=== PATIENT | male | born 1965 | race Caucasian/White ===

== ENCOUNTER 2016-03-14 05:35 | Outpatient (CLI) | payer OTHER ==
[~2016-03-14] VITALS: Ht 190.5 cm; Wt 128.4 kg
[~2016-03-14 05:35] MED LIST: ACHD5005 PO; CPR500T PO; ONDAN4ODT PO
[2016-03-14] MEDS ORDERED: RANI-515 PO (10:16)
[2016-03-14] MEDS ORDERED: ALLO100T PO (10:16)
[2016-03-14] MEDS ORDERED: INDO50CA PO (10:16)
[2016-03-14] MEDS ORDERED: TRIA1TAB3 PO (10:16)
[2016-04-15] MEDS ORDERED: NITR-68 PO (09:39)
[2016-05-07] MEDS ORDERED: HYDR-3875 PO (09:43)
[2016-05-07] MEDS ORDERED: CIPR-225 PO (09:43)
[2016-05-07] MEDS ORDERED: TAMS0.4C98 PO (09:43)
== END 2016-03-14 10:26 ==
LOC: PREOP 05:35
PROVIDERS: ATTEND Urology
DX: Z01.818 Encounter for other preprocedural examination (principal); N20.0 Calculus of kidney

== ENCOUNTER 2016-03-18 06:35 | Day surgery (SDC) | payer OTHER ==
[~2016-03-18] VITALS: Ht 190.5 cm; Wt 128.4 kg
[~2016-03-18 06:35] MED LIST changes: +ALLO100T PO; +INDO50CA PO; +RANI-515 PO; +TRIA1TAB3 PO
[2016-03-18] MEDS ORDERED: cefTRIAXone 1 GM/NS 50 ML IVPB IV ONE ×2 (06:45)
[2016-03-18] MEDS ORDERED: CATHETER FLUSH 10 ML SYR IV PRN (06:45)
[2016-03-18] MEDS ORDERED: LIDOCAINE PF 2% 10 ML (XYLOCAINE) AMP ONE (06:50)
[2016-03-18] MEDS ORDERED: ROCURONIUM 50 MG/5 ML (ZEMURON) VIAL IV ONE (06:50)
[2016-03-18] MEDS ORDERED: fentaNYL INJECTION 100 MCG/2 ML AMP ONE (06:50)
[2016-03-18] MEDS ORDERED: proPOfol 200 MG/20 ML (DIPRIVAN) VIAL IV ONE (06:50)
[2016-03-18] MEDS ORDERED: ONDANSETRON 4 MG/2 ML (SDV) Z0FRAN ONE (06:50)
[2016-03-18] MEDS ORDERED: LACTATED RINGERS 1,000 ML IV ONE ×3 (06:50→10:16)
[2016-03-18] MEDS ORDERED: LIDOCAINE JELLY 2% (XYLOCAINE) 5 ML TUBE ONE (06:50)
[2016-03-18] MEDS ORDERED: MIDAZOLAM 2 MG/2 ML (VERSED) VIAL ONE (06:50)
--- NOTE | 2016-03-18 07:12 | Progress Note-Pre Operative ---
Pre-Operative Progress Note H&P Reviewed The H&P was reviewed, patient examined and no changes noted. Date H&P Reviewed: Mar 18, 2016 Time H&P Reviewed: 07:12 Pre-Operative Diagnosis: Bilateral renal stones ROME SORENSEN MD Mar 18, 2016 7:12 am
--- NOTE | 2016-03-18 07:13 | Progress Note-Post Operative ---
Post-Operative Progess Note Pre-Operative Diagnosis Bilateral renal stones Post-Operative Diagnosis Same Post-Op Procedure Note Date of Procedure: Mar 18, 2016 Name of Procedure: cysto, Rt renal stone manipulation and Rt JJ stent, Rt ESWL Anesthesia Type General FRANCHESCA,ROME Hubbard MD Mar 18, 2016 7:13 am
[2016-03-18] MEDS ORDERED: FAMOTIDINE 20MG/2ML IV (PEPCID) IV ONE (07:15)
--- NOTE | 2016-03-18 07:15 | Discharge Inst-Urology ---
Discharge Inst-Urology Discharge Medications New, Converted, or Re-newed RX: RX on Chart Patient Instructions/Follow Up Plan Please make appointment to been seen Friday 03/31, KUB prior to it KUB on way home Post ESWL instructions Increase oral fluids for 48 hours and then as needed. Diet and Activity as tolerated. If questions or concerns contact your physician Or seek help at emergency department. ROME SORENSEN MD Mar 18, 2016 7:15 am
[2016-03-18 07:25] VITALS: BP 139/107
[2016-03-18] MEDS: LACTATED RINGERS 1,000 ML IV PRN ×3 (07:40→10:24)
[2016-03-18] MEDS ORDERED: KETOROLAC 30 MG/ML VIAL ONE (08:18)
[2016-03-18] MEDS ORDERED: FUROSEMIDE 40 MG/4 ML INJ (LASIX) ONE (08:18)
[2016-03-18] MEDS ORDERED: SEVOFLURANE (ULTANE) 15 ML INHAL SOLN ONE ×4 (08:18→08:47)
--- NOTE | 2016-03-18 08:56 | Diagnostic Imaging Report ---
KUB. INDICATION: Lithotripsy. FINDINGS: There are multiple calcifications projecting over the right kidney. The largest is oval in shape measuring 2.5 cm in size and projects over the area of the right renal pelvis. There are other calcifications suggestive of upper pole and lower pole right kidney stones up to 8 mm in size. Calcification in the left flank up to 6 mm is probably a mid left kidney stone. Multiple calcifications in the pelvis are likely phleboliths. IMPRESSION: Multiple bilateral kidney stones. The largest is 2.5 cm on the right side and is probably within the renal pelvis. Dictated by: Dictated on workstation # [id number]
[2016-03-18] MEDS ORDERED: LABETALOL HCL 20 MG/4 ML VIAL ONE (08:58)
[2016-03-18] MEDS: LABETALOL HCL 20 MG/4 ML VIAL IV PRN ×4 (09:07→09:41)
[2016-03-18] MEDS ORDERED: ONDANSETRON 4 MG/2 ML (SDV) Z0FRAN IVP PRN (09:15)
[2016-03-18] MEDS ORDERED: MEPERIDINE (DEMEROL) INJ 50 MG/ML IVP PRN (09:15)
[2016-03-18] MEDS ORDERED: morphine INJ 10 MG/ML 1ML (SYR OR VIAL) IVP PRN (09:15)
[2016-03-18] MEDS ORDERED: hydrALAZINE (APESOLINE) 20 MG/ML VIAL ONE (10:02)
[2016-03-18] MEDS ORDERED: morphine INJ 10 MG/ML 1ML (SYR OR VIAL) ONE (10:06)
--- NOTE | 2016-03-18 10:17 | OPERATIVE REPORT ---
PROCEDURE PHYSICIAN: ROME SORENSEN DATE OF PROCEDURE: 03/18/2016 PREOPERATIVE DIAGNOSIS: Bilateral renal stone. POSTOPERATIVE DIAGNOSIS: Bilateral renal stone. OPERATION PERFORMED: 1. Cystoscopy. 2. Right renal stone manipulation. 3. Insertion of right double-J stent followed by right ESWL. SURGEON: Edward. ANESTHESIA: General. COMPLICATIONS: None. PROCEDURE: Under satisfactory general anesthesia, the patient in lithotomy position on the cysto table, the genitalia were prepped and draped in the usual sterile fashion. A 21-Martiniquais cystoscope was introduced under vision. Anterior urethra was normal. The prostate was not really obstructing. The bladder neck was opened. The bladder revealed mild trabeculation and was essentially empty. The right ureteral orifice was visualized and 6-Martiniquais 28 cm double J stent was passed and guided fluoroscopically all the way up to the right renal pelvis bypassing the large stone. The guidewire was removed and the stent was seen J-ing nicely proximally, fluoroscopically and distally endoscopically. The bladder was evacuated and the cystoscope was removed, then we moved the patient to the ESWL table supine. The large right renal pelvic stone was localized. Shocks were delivered KV of 5 causing some fragmentation of the stone. The patient received 30 mg of Toradol and 40 mg of Lasix at the end of the procedure. He tolerated the procedure and anesthesia well and was sent to recovery room in stable condition. PLAN: We will see the effect of this blasting. If it is does not produce much result, we will talk to him about sending him to for a percutaneous nephrolithotomy. Job ID: [id number] Dictated Date: 03/18/2016 08:47:46 Manager Case Date: 03/18/2016 10:11:02 / tani
[2016-03-18] MEDS ORDERED: hydrALAZINE (APESOLINE) 20 MG/ML VIAL IV ONE (10:30)
[2016-03-18 10:35] VITALS: BP 139/105
[2016-03-18] MEDS ORDERED: PHENAZOPYRIDINE 100 MG (PYRIDIUM) TABLET PO ONE (11:00)
[2016-03-18] MEDS ORDERED: HYDROcodone/APAP 7.5 MG/325 MG (LORTAB, LORCET PLUS) TABLET PO ONE (11:00)
[2016-03-18 11:05] VITALS: BP 147/101
[2016-03-18] MEDS ORDERED: CIPR-226 PO (11:08)
[2016-03-18] MEDS ORDERED: HYDR-3875 PO (11:08)
[2016-03-18] MEDS ORDERED: PHEN-640 PO (11:08)
[2016-03-18] MEDS ORDERED: TAMS0.4C98 PO (11:08)
[2016-03-18] MEDS ORDERED: ONDANSETRON 4 MG/2 ML (SDV) Z0FRAN IVP ONE (11:23)
[2016-03-18 11:35] VITALS: BP 132/97
[2016-03-18 14:00] VITALS: BP 132/97
--- NOTE | 2016-03-18 14:06 | Diagnostic Imaging Report ---
KUB. INDICATION: Right kidney stone. FINDINGS: There is introduction of a right ureteric stent. There is interval fragmentation of large right renal pelvic stone into fragments the largest measuring 1.9 cm. Multiple other right kidney stones are seen. There is a 6 mm left kidney stone. Calcifications in the pelvis are compatible with phleboliths seen. IMPRESSION: Multiple right kidney and right renal pelvic stones up to 1.9 cm in size. Right ureteric stent appears in good position. Dictated by: Dictated on workstation # [id number]
[2016-03-24 08:07] LABS: TESTOSTERONE FREE 60.7 pg/mL (47.0-244.0)
[2016-04-15] MEDS ORDERED: NITR-68 PO (09:39)
[2016-05-07] MEDS ORDERED: CIPR-225 PO (09:43)
[2016-05-07] MEDS ORDERED: HYDR-3875 PO (09:43)
[2016-05-07] MEDS ORDERED: TAMS0.4C98 PO (09:43)
== END 2016-03-18 14:00 | disposition home or self-care (01) ==
LOC: SDC 06:35
PROVIDERS: ATTEND Urology
DX: N20.0 Calculus of kidney (principal); I10 Essential (primary) hypertension; Z11.2 Encounter for screening for other bacterial diseases
CPT/HCPCS: 36415; 74000; 84402; 84403; 87081

== ENCOUNTER → 2016-03-31 | Outpatient (CLI) | payer OTHER ==
[~2016-03-31] MED LIST changes: +CIPR-225 PO; +CIPR-226 PO; +HYDR-3875 PO; +NITR-65 PO; +NITR-68 PO; +PHEN-640 PO; +TAMS0.4C98 PO
--- OUTSIDE RECORDS SUMMARY | 2016-03-31 13:51 | XMS REPORT | Continuity of Care Document ---
Author Author [facility] Organization [facility] Address Unknown Phone Unavailable Care Team Providers Care Instrument/Control Technician Name Role Phone [facility] OF PCP Insurance Providers Payer Name Policy Number Subscriber Name Relationship [employer]IG[employer] [id number] Vishnu Loco 18 Self / Same As Patient Advance Directives Directive Response Recorded Date/Time Advance Directives No 03/18/16 7:25am Resuscitation Status Full Code 03/18/16 7:25am Problems Active Problems Medical Problem Onset Date Status Kidney stone Unknown Acute Urinary tract infectious disease Unknown Acute Medications Current Home Medications Medication Dose Units Route Directions Days/Qty Instructions Start Date Triamterene/Hydrochlorothiazid 1 Each 1 Each Oral Daily 03/14/16 Indomethacin 50 Mg 50 Mg Oral Twice A Day as needed for Gout Pain Allopurinol 100 Mg 100 Mg Oral Daily as needed for Gout Pain Ranitidine Hcl (Ranitidine) 150 Mg 150 Mg Oral Daily as needed for Heartburn 03/14/16 Ciprofloxacin Hcl 250 Mg 250 Mg Oral Twice A Day 14 03/18/16 Tamsulosin Hcl 0.4 Mg 0.4 Mg Oral Daily 30 03/18/16 Hydrocodone/Acetaminophen 1 Each 1-2 Each Oral Every 4HRS for Pain 30 03/18/16 Phenazopyridine Hcl 200 Mg 1 Tab Oral Three Times A Day for Spasms 15 03/18/16 Past Home Medications Medication Directions Ordered Status Ondansetron Hcl 4 Mg Tab, 4 Mg Oral Every 4HRS 01/14/13 Discontinued Ciprofloxacin 500 Mg Tablet, 1 Tab Oral Twice A Day 01/14/13 Discontinued Acetaminophen/Hydrocodone Bitart 1 Each Tablet, 1-2 Each Oral Every 6 Hours as needed for Pain 01/14/13 Discontinued Social History Social History Problem Response Recorded Date/Time Alcohol Use Occasionally Uses 01/14/2013 2:37am Recreational Drug Use No 01/14/2013 2:37am Recent Foreign Travel No 03/18/2016 7:25am Recent Infectious Disease Exposure No 03/18/2016 7:25am Sexually Transmitted Disease No 03/18/2016 7:25am Smoking Status Former Smoker 03/18/2016 7:25am Recent Hopitalizations No 03/18/2016 7:25am Sexually Transmitted Disease No 03/18/2016 7:25am Query Response Start Date Stop Date Smoking Status Former Smoker Hospital Discharge Instructions Patient Instructions Physician Instructions New, Converted, or Re-newed RX: RX on Chart Plan Please make appointment to been seen Friday 03/31, KUB prior to it KUB on way home Post ESWL instructions Increase oral fluids for 48 hours and then as needed. Diet and Activity as tolerated. If questions or concerns contact your physician Or seek help at emergency department. Plan of Care Discharge Date 03/18/16 2:00pm Instructions/Education Provided ANESTHESIA INSTRUCTIONS POSTOP DR. SORENSEN-ESWL Prescriptions See Medication Section Functional Status No functional status results. Allergies, Adverse Reactions, Alerts Allergen Type Severity Reaction Status Last Updated mushroom Allergy Unknown Active 03/14/16 Immunizations No immunization records. Vital Signs Acute Vital Signs Vital Response Date/Time Temperature (Fahrenheit) 98.5 degrees F (97.6 - 99.5) 03/18/2016 2:00pm Temperature (Calculated Celsius) 36.72341 degrees C (36.4 - 37.5) 03/18/2016 11:35am Temperature Source Tympanic 03/18/2016 2:00pm Pulse Rate (adult) 82 bpm (60 - 90) 03/18/2016 2:00pm Respiratory Rate 16 bpm (12 - 24) 03/18/2016 2:00pm O2 Sat by Pulse Oximetry 95 % (88 - 100) 03/18/2016 2:00pm Blood Pressure 132/97 mm Hg 03/18/2016 2:00pm Blood Pressure Mean 118 mm Hg 03/18/2016 7:25am Pain Numeric Pain Scale 3 03/18/2016 2:00pm Pain Intensity 4 03/18/2016 11:35am Height (Feet) 6 feet 03/18/2016 7:25am Height (Inches) 3.00 inches 03/18/2016 7:25am Height (Calculated Centimeters) 190.312674 cm 03/18/2016 7:25am Weight (Pounds) 283 pounds 03/18/2016 7:25am Weight (Ounces) 0.0 oz 03/18/2016 7:25am Weight (Calculated Grams) 825502.64 gm 03/18/2016 7:25am Weight (Calculated Kilograms) 128.168290 kilograms 03/18/2016 7:25am Calculated BMI 35.4 03/18/2016 7:25am Results No known relevant diagnostic tests, laboratory data and/or discharge summary. Procedures Procedure Status Date Provider(s) Extracorporeal shockwave lithotripsy (ESWL) of right kidney Completed ROME SORENSEN MD Encounters Encounter Location Arrival/Admit Date Discharge/Depart Date Attending Provider Departed Surgical Day Care [facility] 03/18/16 6:35am 2:00pm ROME SORENSEN MD Departed Clinic [facility] 03/14/16 5:35am 03/14/16 10: 26am ROME SORENSEN MD
--- NOTE | 2016-03-31 14:31 | Diagnostic Imaging Report ---
EXAMINATION: KUB. INDICATION: Right renal stone. COMPARISON: 03/18/2016. FINDINGS: There is a 1.9 cm stone in the right renal pelvis along the proximal loop of the right ureteric stent. There are other stones in the mid and lower pole of the right kidney up to a stone fragment measuring 1.5 cm. There are also tiny stone fragments along the distal right ureter adjacent to the stent. There is a calcification projecting in the upper left flank measuring 5 mm which could represent a left kidney stone. Multiple pelvic phleboliths are demonstrated. IMPRESSION: There are multiple right kidney and right renal pelvic stones measuring up to 1.9 cm in size. Tiny stone fragments are also noted along the distal aspect of the right ureteric stent. Dictated by: Dictated on workstation # [id number]
== END ==
LOC: RAD 13:46
PROVIDERS: ATTEND Urology
DX: N20.0 Calculus of kidney (principal); Z98.890 Other specified postprocedural states
CPT/HCPCS: 74000

== ENCOUNTER 2016-04-01 14:25 | Outpatient (CLI) | payer OTHER ==
[~2016-04-01] VITALS: Ht 190.5 cm; Wt 128.4 kg
[~2016-04-01 14:25] MED LIST changes: -CIPR-225 PO; -NITR-65 PO; -NITR-68 PO
--- OUTSIDE RECORDS SUMMARY | 2016-04-01 14:29 | XMS REPORT | Continuity of Care Document ---
Author Author [facility] Organization [facility] Address Unknown Phone Unavailable Care Team Providers Care Annual Giving Officer Name Role Phone [facility] OF PCP Insurance Providers Payer Name Policy Number Subscriber Name Relationship [employer] [id number] Vishnu Loco 18 Self / Same As [...] - 99.5) 03/18/2016 2:00pm Temperature (Calculated Celsius) 36.20684 degrees C (36.4 - 37.5) 03/18/2016 11:35am [...] 3.00 inches 03/18/2016 7:25am Height (Calculated Centimeters) 190.660256 cm 03/18/2016 7:25am Weight (Pounds) 283 pounds 03/18/2016 7:25am Weight (Ounces) 0.0 oz 03/18/2016 7:25am Weight (Calculated Grams) 056619.64 gm 03/18/2016 7:25am Weight (Calculated Kilograms) 128.221358 kilograms 03/18/2016 7:25am Calculated BMI 35.4 03/18/2016 7:25am Results No known relevant diagnostic tests, laboratory data and/or discharge summary. Procedures Procedure Status Date Provider(s) Extracorporeal shockwave lithotripsy (ESWL) of right kidney Completed ROME SORENSEN MD Encounters Encounter Location Arrival/Admit Date Discharge/Depart Date Attending Provider Departed Surgical Day Care [facility] 03/18/16 6:35am 2:00pm ROME SORENSEN MD Departed Clinic [facility] 03/14/16 5:35am 03/14/16 10: 26am ROME SORENSEN MD
[2016-04-02] MEDS ORDERED: NITR-65 PO (12:07)
[2016-04-15] MEDS ORDERED: NITR-68 PO (09:39)
[2016-05-07] MEDS ORDERED: TAMS0.4C98 PO (09:43)
[2016-05-07] MEDS ORDERED: HYDR-3875 PO (09:43)
[2016-05-07] MEDS ORDERED: CIPR-225 PO (09:43)
== END 2016-04-01 14:32 ==
LOC: PREOP 14:25
PROVIDERS: ATTEND Urology
DX: Z01.818 Encounter for other preprocedural examination (principal); N20.0 Calculus of kidney

== ENCOUNTER 2016-04-02 06:52 | Day surgery (SDC) | payer OTHER ==
[~2016-04-02] VITALS: Ht 190.5 cm; Wt 128.4 kg
--- OUTSIDE RECORDS SUMMARY | 2016-04-02 06:56 | XMS REPORT | Continuity of Care Document ---
Author Author [facility] Organization [facility] Address Unknown Phone Unavailable Care Team Providers Care Faucets Assembler Name Role Phone [facility] OF PCP Insurance Providers Payer Name Policy Number Subscriber Name Relationship [employer] [id number] Vishnu Loco 18 Self / Same As [...] - 99.5) 03/18/2016 2:00pm Temperature (Calculated Celsius) 36.53133 degrees C (36.4 - 37.5) 03/18/2016 11:35am [...] 3.00 inches 03/18/2016 7:25am Height (Calculated Centimeters) 190.394264 cm 03/18/2016 7:25am Weight (Pounds) 283 pounds 03/18/2016 7:25am Weight (Ounces) 0.0 oz 03/18/2016 7:25am Weight (Calculated Grams) 508867.64 gm 03/18/2016 7:25am Weight (Calculated Kilograms) 128.066149 kilograms 03/18/2016 7:25am Calculated BMI 35.4 03/18/2016 7:25am Results No known relevant diagnostic tests, laboratory data and/or discharge summary. Procedures Procedure Status Date Provider(s) Extracorporeal shockwave lithotripsy (ESWL) of right kidney Completed ROME SORENSEN MD Encounters Encounter Location Arrival/Admit Date Discharge/Depart Date Attending Provider Departed Surgical Day Care [facility] 03/18/16 6:35am 2:00pm ROME SORENSEN MD Departed Clinic [facility] 03/14/16 5:35am 03/14/16 10: 26am ROME SORENSEN MD
--- OUTSIDE RECORDS SUMMARY | 2016-04-02 06:57 | XMS REPORT | Continuity of Care Document ---
Author Author [facility] Organization [facility] Address Unknown Phone Unavailable Care Team Providers Care Geography Instructor Name Role Phone [facility] OF PCP Insurance Providers Payer Name Policy Number Subscriber Name Relationship [employer]IGNA [id number] Vishnu Loco 18 Self / Same As [...] - 99.5) 03/18/2016 2:00pm Temperature (Calculated Celsius) 36.39970 degrees C (36.4 - 37.5) 03/18/2016 11:35am [...] 3.00 inches 03/18/2016 7:25am Height (Calculated Centimeters) 190.952181 cm 03/18/2016 7:25am Weight (Pounds) 283 pounds 03/18/2016 7:25am Weight (Ounces) 0.0 oz 03/18/2016 7:25am Weight (Calculated Grams) 338495.64 gm 03/18/2016 7:25am Weight (Calculated Kilograms) 128.350426 kilograms 03/18/2016 7:25am Calculated BMI 35.4 03/18/2016 7:25am Results No known relevant diagnostic tests, laboratory data and/or discharge summary. Procedures Procedure Status Date Provider(s) Extracorporeal shockwave lithotripsy (ESWL) of right kidney Completed ROME SORENSEN MD Encounters Encounter Location Arrival/Admit Date Discharge/Depart Date Attending Provider Departed Surgical Day Care [facility] 03/18/16 6:35am 2:00pm ROME SORENSEN MD Departed Clinic [facility] 03/14/16 5:35am 03/14/16 10: 26am ROME SORENSEN MD
[2016-04-02 07:00] VITALS: BP 150/90
--- NOTE | 2016-04-02 07:06 | Progress Note-Pre Operative ---
Pre-Operative Progress Note H&P Reviewed The H&P was reviewed, patient examined and no changes noted. Date H&P Reviewed: Apr 02, 2016 Time H&P Reviewed: 07:06 Pre-Operative Diagnosis: bilateral renal stones ROME SORENSEN MD Apr 02, 2016 7:06 am
[2016-04-02] MEDS ORDERED: cefTRIAXone 1 GM/NS 50 ML IVPB IV ONE ×2 (07:45)
[2016-04-02] MEDS ORDERED: NORMAL SALINE (BAXTER MINI) 50 ML IV ONE (07:55)
--- NOTE | 2016-04-02 08:08 | Diagnostic Imaging Report ---
EXAMINATION: KUB. INDICATION: Pre lithotripsy. COMPARISON: 03/31/16 There are multiple stones in the right kidney including a 1.9 CM stone in the right renal pelvis near the proximal loop of the right ureteric stent. Tiny stone fragments are again seen at the distal the right ureter along the stent. No definite left ureteric stones. Multiple phleboliths are seen in the pelvis. In the left flank there is a 5 mm calcification which could be a left kidney stone. IMPRESSION: Multiple right kidney stones and stone fragments along the distal right ureter. Dictated by: Dictated on workstation # [id number]
[2016-04-02] MEDS: LACTATED RINGERS 1,000 ML IV PRN ×2 (08:09→09:44)
[2016-04-02] MEDS ORDERED: fentaNYL INJECTION 100 MCG/2 ML AMP ONE (09:13)
[2016-04-02] MEDS ORDERED: MIDAZOLAM 2 MG/2 ML (VERSED) VIAL ONE (09:13)
[2016-04-02] MEDS ORDERED: proPOfol 200 MG/20 ML (DIPRIVAN) VIAL IV ONE (09:27)
[2016-04-02] MEDS ORDERED: LACTATED RINGERS 1,000 ML IV ONE ×2 (09:27→09:49)
[2016-04-02] MEDS ORDERED: ONDANSETRON 4 MG/2 ML (SDV) Z0FRAN ONE (09:27)
[2016-04-02] MEDS ORDERED: FUROSEMIDE 40 MG/4 ML INJ (LASIX) ONE (09:27)
[2016-04-02] MEDS ORDERED: SEVOFLURANE (ULTANE) 15 ML INHAL SOLN ONE ×2 (09:27→09:49)
[2016-04-02] MEDS ORDERED: KETOROLAC 30 MG/ML VIAL ONE (09:27)
[2016-04-02] MEDS ORDERED: DEXAMETHASONE PF 10 MG/ML (DECADRON) VIAL ONE (09:27)
--- NOTE | 2016-04-02 09:36 | Progress Note-Post Operative ---
Post-Operative Progess Note Pre-Operative Diagnosis bilateral renal stones Post-Operative Diagnosis SAME Post-Op Procedure Note Date of Procedure: Apr 02, 2016 Name of Procedure: RT ESWL Anesthesia Type GENERAL ROME SORENSEN MD Apr 02, 2016 9:36 am
--- NOTE | 2016-04-02 09:40 | Discharge Inst-Urology ---
Discharge Inst-Urology Discharge Medications New, Converted, or Re-newed RX: RX on Chart Patient Instructions/Follow Up Plan Please make appointment to been seen in office Friday 04/14, KUB prior to it KUB on way home Post ESWL instructions Increase oral fluids for 48 hours and then as needed. Diet and Activity as tolerated. If questions or concerns contact your physician Or seek help at emergency department. ROME SORENSEN MD Apr 02, 2016 9:40 am
[2016-04-02 10:55] VITALS: BP 132/95
[2016-04-02 11:25] VITALS: BP 134/89
[2016-04-02 11:55] VITALS: BP 126/82
[2016-04-02] MEDS ORDERED: NITR-65 PO (12:07)
[2016-04-02 13:11] VITALS: BP 126/82
--- NOTE | 2016-04-02 14:15 | Diagnostic Imaging Report ---
CLINICAL INDICATION: Postop right ESWL. EXAM: KUB x-ray. COMPARISON: KUB x-ray dated 04/02/2016 at 0740 hours. FINDINGS: The right double-J ureteral stent is again seen. Again seen are multiple bulky calcifications involving the right kidney with a large calcification seen within the right renal pelvis region. There has been interval fragmentation and change in configuration of the stone within the right renal pelvis. There is a stable appearance of stones seen along the mid right ureter at the upper L4 vertebral body level. There are also again seen calcifications overlying the distal right ureter region in the region of the pelvis. There is a stable 5 mm stone overlying the left kidney. The remainder of this exam shows no significant interval change compared to the prior study of comparison. IMPRESSION: 1. There is interval slightly fragmented appearance of the stone within the right renal pelvis compared to the prior study which may be related to the patient's recent postop changes. 2. Otherwise, stable bilateral nephrolithiasis, right side more than the left. Stable calcifications overlying the mid and distal aspect of the right ureter. The right double-J ureteral stent is still in place. Dictated by: Dictated on workstation # [id number]
--- NOTE | 2016-04-03 10:57 | OPERATIVE REPORT ---
PROCEDURE PHYSICIAN: ROME SORENSEN DATE OF PROCEDURE: 04/02/2016 PREOPERATIVE DIAGNOSIS: Bilateral renal stones. POSTOPERATIVE DIAGNOSIS: Bilateral renal stones. OPERATION: Right ESWL. SURGEON: Edward ANESTHESIA: General. COMPLICATIONS: None. PROCEDURE: Under satisfactory general anesthesia, the patient supine position on the ESWL table, the right renal pelvic stone remnant from the last time was localized. Shocks were delivered at KV of 5. A total of 2500 shocks were delivered and the stone was seen nicely layering and fainter which meant to us good fragmentation. The patient received 40 mg of Lasix and 30 mg of Toradol IV at the end of the procedure. He tolerated the procedure and anesthesia well and was sent to recovery room in stable condition. Job ID: [id number] Dictated Date: 04/02/2016 09:49:12 Technical Support Director Date: 04/03/2016 10:53:45 / tani
[2016-04-15] MEDS ORDERED: NITR-68 PO (09:39)
[2016-05-07] MEDS ORDERED: HYDR-3875 PO (09:43)
[2016-05-07] MEDS ORDERED: TAMS0.4C98 PO (09:43)
[2016-05-07] MEDS ORDERED: CIPR-225 PO (09:43)
== END 2016-04-02 13:11 | disposition home or self-care (01) ==
LOC: SDC 06:52
PROVIDERS: ATTEND Urology
DX: N20.0 Calculus of kidney (principal); Z11.2 Encounter for screening for other bacterial diseases
CPT/HCPCS: 74000; 87081

== ENCOUNTER → 2016-04-14 | Outpatient (CLI) | payer OTHER ==
[~2016-04-14] MED LIST changes: +CIPR-225 PO; +NITR-65 PO; +NITR-68 PO
--- OUTSIDE RECORDS SUMMARY | 2016-04-14 15:14 | XMS REPORT | Continuity of Care Document ---
Author Author [facility] Organization [facility] Address Unknown Phone Unavailable Care Team Providers Care Torpedo Shooter Name Role Phone LION ORTEGA DO PCP Insurance Providers Payer Name Policy Number Subscriber Name Relationship CIGNA [id number] Vishnu Loco 18 Self / Same As Patient Advance Directives Directive Response Recorded Date/Time Advance Directives No 04/02/16 7:00am Health Care Power of Marine Equipment Engineer No 04/02/16 7:00am Resuscitation Status Full Code [...] - 99.5) 04/02/2016 1:11pm Temperature (Calculated Celsius) 36.00315 degrees C (36.4 - 37.5) 04/02/2016 11:55am [...] 3.00 inches 04/02/2016 7:00am Height (Calculated Centimeters) 190.123413 cm 04/02/2016 7:00am Weight (Pounds) 283 pounds 04/02/2016 7:00am Weight (Ounces) 0.0 oz 04/02/2016 7:00am Weight (Calculated Grams) 968499.64 gm 04/02/2016 7:00am Weight (Calculated Kilograms) 128.533431 kilograms 04/02/2016 7:00am Calculated BMI 35.4 04/02/2016 [...] Attending Provider Registered Surgical Day Care [facility] 04/02/16 6:52am ROME SORENSEN MD Departed Clinic [facility] 04/01/16 2:25pm 04/01/16 2: 32pm ROME SORENSEN MD Registered Clinic [facility] 03/31/16 1:46pm ROME SORENSEN MD Departed Surgical Day Care [facility] 03/18/16 6:35am 2:00pm ROME SORENSEN MD Departed Clinic [facility] 03/14/16 5:35am 03/14/16 10: 26am ROME SORENSEN MD
--- NOTE | 2016-04-14 18:24 | Diagnostic Imaging Report ---
KUB. INDICATION: Right renal stones. COMPARISON: 04/02/16. FINDINGS: In the lower pole of the left kidney, there is suggestion of probably 3 poorly large stones in the lower pole of the right kidney. Other smaller stones in the mid and upper right kidney and a 6 mm stone in the left kidney is seen. There are also proximal right ureteric stones up to 8 mm in size at L3 level. Right ureteric stent is in place. Multiple pelvic phleboliths also seen. IMPRESSION: Multiple bilateral kidney stones, larger on the right side. There are also proximal right ureteric stones up to 8 mm at L3 level. Dictated by: Dictated on workstation # [id number]
== END ==
LOC: RAD 15:10
PROVIDERS: ATTEND Urology
DX: N20.0 Calculus of kidney (principal); Z98.890 Other specified postprocedural states
CPT/HCPCS: 74000

== ENCOUNTER → 2016-04-14 | Outpatient (CLI) | payer OTHER ==
--- OUTSIDE RECORDS SUMMARY | 2016-04-14 05:41 | XMS REPORT | Continuity of Care Document ---
Author Author [facility] Organization [facility] Address Unknown Phone Unavailable Care Team Providers Care Color Grinder Name Role Phone LION ORTEGA DO PCP Insurance Providers Payer Name Policy Number Subscriber Name Relationship [employer]IG[employer] [id number] Vishnu Loco 18 Self / Same As Patient Advance Directives Directive Response Recorded Date/Time Advance Directives No 04/02/16 7:00am Health Care Power of Machine Made Shoe Unit Worker No 04/02/16 7:00am Resuscitation Status Full Code 04/02/16 7:00am Problems Active Problems Medical Problem Onset Date [...] Oral Daily as needed for Heartburn 03/14/16 Tamsulosin Hcl 0.4 Mg 0.4 Mg Oral Daily 30 03/18/16 Hydrocodone/Acetaminophen 1 Each 1-2 Each Oral Every 4HRS for Pain 30 03/18/16 Phenazopyridine Hcl 200 Mg 1 Tab Oral Three Times A Day for Spasms 15 03/18/16 Nitrofurantoin Monohyd/M-Cryst 100 Mg 1 Tab Oral Twice A Day 14 TAKE ONE CAPSULE TWICE A DAY. USE ALL OF THIS ANTIBIOTIC PRESCRIBED. 04/02/16 Past Home Medications Medication Directions Ordered Status Ondansetron Hcl 4 Mg Tab, 4 Mg Oral Every 4HRS 01/14/13 Discontinued Ciprofloxacin 500 Mg Tablet, 1 Tab Oral Twice A Day 01/14/13 Discontinued Acetaminophen/Hydrocodone Bitart 1 Each Tablet, 1-2 Each Oral Every 6 Hours as needed for Pain 01/14/13 Discontinued Ciprofloxacin Hcl 250 Mg Tablet, 250 Mg Oral Twice A Day 03/18/16 Discontinued Social History Social History Problem Response Recorded Date/Time Alcohol Use Occasionally Uses 01/14/2013 2:37am Recreational Drug Use No 01/14/2013 2:37am Recent Foreign Travel No 04/02/2016 7:00am Recent Infectious Disease Exposure No 04/02/2016 7:00am Sexually Transmitted Disease No 04/02/2016 7:00am HIV/AIDS No 04/02/2016 7:00am Smoking Status Former Smoker 04/02/2016 7:00am Recent Hopitalizations No 04/02/2016 7:00am Sexually Transmitted Disease No 04/02/2016 7:00am Query Response Start Date Stop Date Smoking Status Former Smoker Hospital Discharge Instructions Patient Instructions Physician Instructions New, Converted, or Re-newed RX: RX on Chart Plan Please make appointment to been seen in office Friday 04/14, KUSunita prior to it KUB on way home Post ESWL instructions Increase oral fluids for 48 hours and then as needed. Diet and Activity as tolerated. If questions or concerns contact your physician Or seek help at emergency department. Plan of Care Discharge Date 04/02/16 1:11pm Instructions/Education Provided ANESTHESIA INSTRUCTIONS POSTOP DR. SORENSEN-ESWL Prescriptions See Medication Section Functional Status No functional status results. Allergies, Adverse Reactions, Alerts Allergen Type Severity Reaction Status Last Updated mushroom Allergy Unknown Active 03/14/16 Immunizations No immunization records. Vital Signs Acute Vital Signs Vital Response Date/Time Temperature (Fahrenheit) 97.9 degrees F (97.6 - 99.5) 04/02/2016 1:11pm Temperature (Calculated Celsius) 36.59510 degrees C (36.4 - 37.5) 04/02/2016 11:55am Temperature Source Tympanic 04/02/2016 1:11pm Pulse Rate (adult) 78 bpm (60 - 90) 04/02/2016 1:11pm Respiratory Rate 16 bpm (12 - 24) 04/02/2016 1:11pm O2 Sat by Pulse Oximetry 93 % (88 - 100) 04/02/2016 1:11pm Blood Pressure 126/82 mm Hg 04/02/2016 1:11pm Blood Pressure Mean 110 mm Hg 04/02/2016 7:00am Pain Numeric Pain Scale 0-No Pain 04/02/2016 1:11pm Pain Intensity 0 04/02/2016 11:55am Height (Feet) 6 feet 04/02/2016 7:00am Height (Inches) 3.00 inches 04/02/2016 7:00am Height (Calculated Centimeters) 190.350867 cm 04/02/2016 7:00am Weight (Pounds) 283 pounds 04/02/2016 7:00am Weight (Ounces) 0.0 oz 04/02/2016 7:00am Weight (Calculated Grams) 609915.64 gm 04/02/2016 7:00am Weight (Calculated Kilograms) 128.991539 kilograms 04/02/2016 7:00am Calculated BMI 35.4 04/02/2016 7:00am Results Pending Laboratory Results Test Name Collection Date/Time Pending Microbiology Results Procedure Source Collection Date/Time Procedures Procedure Status Date Provider(s) CYSTOSCOPY AND TREATMENT Completed 03/18/16 ROME SORENSEN MD FRAGMENTING OF KIDNEY STONE Completed 03/18/16 ROME SORENSEN MD Extracorporeal shockwave lithotripsy (ESWL) of right kidney Completed ROME SORENSEN MD Encounters Encounter Location Arrival/Admit Date Discharge/Depart Date Attending Provider Registered Surgical Day Care [facility] 04/02/16 6:52am ROME SORENSEN MD Departed Clinic [facility] 04/01/16 2:25pm 04/01/16 2: 32pm ROME SORENSEN MD Registered Clinic [facility] 03/31/16 1:46pm ROME SORENSEN MD Departed Surgical Day Care [facility] 03/18/16 6:35am 2:00pm ROME SORENSEN MD Departed Clinic [facility] 03/14/16 5:35am 03/14/16 10: 26am ROME SORENSEN MD
== END ==
LOC: PREOP 05:38
PROVIDERS: ATTEND Urology
DX: Z01.818 Encounter for other preprocedural examination (principal); N20.0 Calculus of kidney

== ENCOUNTER 2016-04-15 06:09 | Day surgery (SDC) | payer OTHER ==
[~2016-04-15] VITALS: Ht 190.5 cm; Wt 128.4 kg
[~2016-04-15 06:09] MED LIST changes: -CIPR-225 PO; -NITR-68 PO
--- OUTSIDE RECORDS SUMMARY | 2016-04-15 06:13 | XMS REPORT | Continuity of Care Document ---
Author Author [facility] Organization [facility] Address Unknown Phone Unavailable Care Team Providers Care Dough Cutting Machine Operator Name Role Phone LION ORTEGA DO PCP Insurance Providers Payer Name Policy Number Subscriber Name Relationship CIGNA [id number] Vishnu Loco 18 Self / Same As Patient Advance Directives Directive Response Recorded Date/Time Advance Directives No 04/02/16 7:00am Health Care Power of Car Blocker No 04/02/16 7:00am Resuscitation Status Full Code [...] - 99.5) 04/02/2016 1:11pm Temperature (Calculated Celsius) 36.46350 degrees C (36.4 - 37.5) 04/02/2016 11:55am [...] 3.00 inches 04/02/2016 7:00am Height (Calculated Centimeters) 190.213272 cm 04/02/2016 7:00am Weight (Pounds) 283 pounds 04/02/2016 7:00am Weight (Ounces) 0.0 oz 04/02/2016 7:00am Weight (Calculated Grams) 354499.64 gm 04/02/2016 7:00am Weight (Calculated Kilograms) 128.637690 kilograms 04/02/2016 7:00am Calculated BMI 35.4 04/02/2016 7:00am Results Pending Laboratory Results Test Name Collection Date/Time Pending Microbiology Results Procedure Source Collection Date/Time Procedures Procedure Status Date Provider(s) CYSTOSCOPY AND TREATMENT Completed 03/18/16 ROME SORENSEN MD FRAGMENTING OF KIDNEY STONE Completed 03/18/16 ROEM SORENSEN MD Extracorporeal shockwave lithotripsy (ESWL) of right kidney Completed ROME SORENSEN MD Encounters Encounter Location Arrival/Admit Date Discharge/Depart Date Attending Provider Registered Surgical Day Care [facility] 04/02/16 6:52am ROME SORENSEN MD Departed Clinic [facility] 04/01/16 2:25pm 04/01/16 2: 32pm ROME SORENSEN MD Registered Clinic [facility] 03/31/16 1:46pm ROME SORENSEN MD Departed Surgical Day Care [facility] 03/18/16 6:35am 2:00pm ROME SORENSEN MD Departed Clinic [facility] 03/14/16 5:35am 03/14/16 10: 26am ROME SORENSEN MD
--- OUTSIDE RECORDS SUMMARY | 2016-04-15 06:13 | XMS REPORT | Continuity of Care Document ---
Author Author [facility] Organization [facility] Address Unknown Phone Unavailable Care Team Providers Care Narrative Writer Name Role Phone LION ORTEGA DO PCP Insurance Providers Payer Name Policy Number Subscriber Name Relationship CIGNA [id number] Vishnu Loco 18 Self / Same As Patient Advance Directives Directive Response Recorded Date/Time Advance Directives No 04/02/16 7:00am Health Care Power of Front Line Leader No 04/02/16 7:00am Resuscitation Status Full Code [...] - 99.5) 04/02/2016 1:11pm Temperature (Calculated Celsius) 36.00917 degrees C (36.4 - 37.5) 04/02/2016 11:55am [...] 3.00 inches 04/02/2016 7:00am Height (Calculated Centimeters) 190.216194 cm 04/02/2016 7:00am Weight (Pounds) 283 pounds 04/02/2016 7:00am Weight (Ounces) 0.0 oz 04/02/2016 7:00am Weight (Calculated Grams) 898119.64 gm 04/02/2016 7:00am Weight (Calculated Kilograms) 128.706533 kilograms 04/02/2016 7:00am Calculated BMI 35.4 04/02/2016 [...] Attending Provider Registered Surgical Day Care [facility] 04/02/16 6:52am ROME SORENSEN MD Departed Clinic [facility] 04/01/16 2:25pm 04/01/16 2: 32pm ROME SORENSEN MD Registered Clinic [facility] 03/31/16 1:46pm ROME SORENSEN MD Departed Surgical Day Care [facility] 03/18/16 6:35am 2:00pm ROME SORENSEN MD Departed Clinic [facility] 03/14/16 5:35am 03/14/16 10: 26am ROME SORENSEN MD
[2016-04-15] MEDS ORDERED: cefTRIAXone 1 GM (ROCEPHIN) VIAL ONE (06:32)
[2016-04-15] MEDS ORDERED: NS (IVPB) 50 ML ONE (06:33)
[2016-04-15] MEDS ORDERED: LACTATED RINGERS 1,000 ML IV PRN (06:57)
[2016-04-15 07:00] VITALS: BP 139/97
[2016-04-15] MEDS ORDERED: cefTRIAXone 1 GM/NS 50 ML IVPB IV ONE ×2 (07:00)
[2016-04-15] MEDS ORDERED: FUROSEMIDE 40 MG/4 ML INJ (LASIX) ONE (07:01)
[2016-04-15] MEDS ORDERED: KETOROLAC 30 MG/ML VIAL ONE (07:01)
[2016-04-15] MEDS ORDERED: proPOfol 200 MG/20 ML (DIPRIVAN) VIAL IV ONE (07:01)
[2016-04-15] MEDS ORDERED: ONDANSETRON 4 MG/2 ML (SDV) Z0FRAN ONE ×2 (07:01→09:14)
[2016-04-15] MEDS ORDERED: DEXAMETHASONE PF 10 MG/ML (DECADRON) VIAL ONE (07:01)
[2016-04-15] MEDS ORDERED: fentaNYL INJECTION 100 MCG/2 ML AMP ONE (07:01)
[2016-04-15] MEDS ORDERED: LIDOCAINE PF 2% 10 ML (XYLOCAINE) AMP ONE (07:01)
[2016-04-15] MEDS ORDERED: MIDAZOLAM 2 MG/2 ML (VERSED) VIAL ONE (07:02)
[2016-04-15] MEDS ORDERED: LACTATED RINGERS 1,000 ML IV ONE ×2 (07:02→08:17)
--- NOTE | 2016-04-15 07:17 | Progress Note-Pre Operative ---
Pre-Operative Progress Note H&P Reviewed The H&P was reviewed, patient examined and no changes noted. Date H&P Reviewed: Apr 15, 2016 Time H&P Reviewed: 07:17 Pre-Operative Diagnosis: RT RENAL AND URETERAL STONES ROME SORENSEN MD Apr 15, 2016 7:17 am
--- NOTE | 2016-04-15 07:23 | Diagnostic Imaging Report ---
INDICATION: Lithotripsy KUB is obtained with comparison made to study of one day earlier. Multiple calculi are again seen within the right kidney with the largest in the lower pole region reaching 1.5 cm in size. Double-J nephroureteral stent is in place on the right with several stones again seen adjacent to this stent at the L3-4 level measuring up to 0.6 cm in size. Additional calcifications in the right hemipelvis are likely due to phlebolith. 0.5 cm calculus is again noted in the upper pole region of the left kidney. IMPRESSION: Bilateral renal calculi, similar to previous study with no significant change in stones adjacent to the right nephroureteral stent at the L3-4 level. Dictated by: Dictated on workstation # [id number]
--- NOTE | 2016-04-15 07:41 | Progress Note-Post Operative ---
Post-Operative Progess Note Pre-Operative Diagnosis RT RENAL AND URETERAL STONES Post-Operative Diagnosis SAME Post-Op Procedure Note Date of Procedure: Apr 15, 2016 Name of Procedure: RT ESWL Anesthesia Type GENERAL ROME SORENSEN MD Apr 15, 2016 7:41 am
--- NOTE | 2016-04-15 07:43 | Discharge Inst-Urology ---
Discharge Inst-Urology Discharge Medications New, Converted, or Re-newed RX: RX on Chart Patient Instructions/Follow Up Plan Please make appointment to been seen Friday 05/05, KUB prior to it KUB on way home Post ESWL instructions Increase oral fluids for 48 hours and then as needed. Diet and Activity as tolerated. If questions or concerns contact your physician Or seek help at emergency department. ROEM SORENSEN MD Apr 15, 2016 7:43 am
[2016-04-15] MEDS ORDERED: ONDANSETRON 4 MG/2 ML (SDV) Z0FRAN IVP PRN (08:45)
[2016-04-15] MEDS ORDERED: morphine INJ 10 MG/ML 1ML (SYR OR VIAL) IVP PRN (08:45)
[2016-04-15] MEDS ORDERED: MEPERIDINE (DEMEROL) INJ 50 MG/ML IVP PRN (08:45)
[2016-04-15 09:30] VITALS: BP 142/97
[2016-04-15] MEDS ORDERED: NITR-68 PO ×2 (09:39)
[2016-04-15 10:00] VITALS: BP 142/97
[2016-04-15 10:30] VITALS: BP 139/97
[2016-04-15] MEDS ORDERED: HYDROcodone/APAP 7.5 MG/325 MG (LORTAB, LORCET PLUS) TABLET PO ONE (11:20)
--- NOTE | 2016-04-15 12:12 | Diagnostic Imaging Report ---
EXAMINATION: KUB. INDICATION: Post lithotripsy. FINDINGS: Again seen large stones in the lower pole of the right kidney with confluent stones or stone fragments collectively measuring up to 3.1 CM seen within the lower pole calyxes. Other smaller multiple stones in the mid right kidney are noted and a 5 mm stone in the left kidney is seen. There are prominent stones along the proximal right ureter adjacent to the stent seen when compared to 04/15/16 exam prior to lithotripsy. Phleboliths noted in the pelvis. IMPRESSION: Bilateral kidney stones most prominent in the lower pole of the right kidney. Less prominent proximal right ureter stone adjacent to the stent seen. Dictated by: Dictated on workstation # [id number]
[2016-04-15 12:50] VITALS: BP 139/97
--- NOTE | 2016-04-16 12:36 | OPERATIVE REPORT ---
PROCEDURE PHYSICIAN: ROME SORENSEN DATE OF PROCEDURE: 04/15/2016 PREOPERATIVE DIAGNOSIS: Bilateral renal stones and right proximal ureteral stone. OPERATION: Right ESWL x2. SURGEON: Edward. ANESTHESIA: General. COMPLICATIONS: None. PROCEDURE: Under satisfactory general anesthesia, the patient in supine position on the ESWL table, we first localized to put good fragment stones in the proximal right ureter and fragmented them with 2000 shocks at KV of 6. Then we moved to the main portion of the stone fragments in the kidney on the right side and we delivered 2500 shocks. The stones looked well fragmented much fainter. The patient received 40 mg of Lasix and 30 mg of Toradol IV. He tolerated the procedure and anesthesia well and was sent to recovery room in stable condition. Job ID: [id number] Dictated Date: 04/15/2016 08:27:40 Ceo And President Date: 04/16/2016 12:33:53 / tani
[2016-05-07] MEDS ORDERED: TAMS0.4C98 PO (09:43)
[2016-05-07] MEDS ORDERED: CIPR-225 PO (09:43)
[2016-05-07] MEDS ORDERED: HYDR-3875 PO (09:43)
== END 2016-04-15 12:50 | disposition home or self-care (01) ==
LOC: SDC 06:09
PROVIDERS: ATTEND Urology
DX: N20.2 Calculus of kidney with calculus of ureter (principal)
CPT/HCPCS: 74000; 87081

== ENCOUNTER → 2016-05-05 | Outpatient (CLI) | payer OTHER ==
[~2016-05-05] MED LIST changes: +CIPR-225 PO; +NITR-68 PO
--- OUTSIDE RECORDS SUMMARY | 2016-05-05 13:26 | XMS REPORT | Continuity of Care Document ---
Author Author [facility] Organization [facility] Address Unknown Phone Unavailable Care Team Providers Care Bird Trapper Name Role Phone LION ORTEGA DO PCP Insurance Providers Payer Name Policy Number Subscriber Name Relationship CIGNA [id number] Vishnu Loco 18 Self / Same As Patient Advance Directives Directive Response Recorded Date/Time Advance Directives No 04/02/16 7:00am Health Care Power of Forensics Analyst No 04/02/16 7:00am Resuscitation Status Full Code [...] 1:11pm Instructions/Education Provided ANESTHESIA INSTRUCTIONS POSTOP DR. SORENESN-ESWL Prescriptions See Medication Section Functional Status No functional status results. Allergies, Adverse Reactions, Alerts Allergen Type Severity Reaction Status Last Updated mushroom Allergy Unknown Active 03/14/16 Immunizations No immunization records. Vital Signs Acute Vital Signs Vital Response Date/Time Temperature (Fahrenheit) 97.9 degrees F (97.6 - 99.5) 04/02/2016 1:11pm Temperature (Calculated Celsius) 36.13486 degrees C (36.4 - 37.5) 04/02/2016 11:55am [...] 3.00 inches 04/02/2016 7:00am Height (Calculated Centimeters) 190.898209 cm 04/02/2016 7:00am Weight (Pounds) 283 pounds 04/02/2016 7:00am Weight (Ounces) 0.0 oz 04/02/2016 7:00am Weight (Calculated Grams) 361163.64 gm 04/02/2016 7:00am Weight (Calculated Kilograms) 128.896668 kilograms 04/02/2016 7:00am Calculated BMI 35.4 04/02/2016 [...] Attending Provider Registered Surgical Day Care [facility] 04/02/16 6:52am ROME SORENSEN MD Departed Clinic [facility] 04/01/16 2:25pm 04/01/16 2: 32pm ROME SORENSEN MD Registered Clinic [facility] 03/31/16 1:46pm ROME SORENSEN MD Departed Surgical Day Care [facility] 03/18/16 6:35am 2:00pm ROME SORENSEN MD Departed Clinic [facility] 03/14/16 5:35am 03/14/16 10: 26am ROME SORENSEN MD
--- NOTE | 2016-05-05 18:29 | Diagnostic Imaging Report ---
Abdomen supine at 1:50 p.m. INDICATION: Nephrolithiasis. FINDINGS: The prior abdomen exam of 04/15/2016 noted a ureteral stent in place on the right. In the interval since the prior study, the stent has migrated caudally and the proximal portion of stent now overlies the distal right ureter with at least half the stent coiled on itself in the bladder. Furthermore, in the interval since the previous study, numerous calcifications from the inferior pole of right kidney have migrated into the distal right ureter. There are still a few calcific densities overlying the right kidney. The 4 mm calculus overlying the left kidney seen previously is also again evident and no different. No other abnormalities noted. IMPRESSION: 1. The ureteral stent in the right has migrated into the distal right ureter. There are also numerous calculi now overlying the distal right ureter. 2. These results were discussed with Dr. Leon. Dictated by: Dictated on workstation # [id number]
== END ==
LOC: RAD 13:22
PROVIDERS: ATTEND Urology
DX: N20.1 Calculus of ureter (principal)
CPT/HCPCS: 74000

== ENCOUNTER 2016-05-06 08:30 | Outpatient (CLI) | payer OTHER ==
--- OUTSIDE RECORDS SUMMARY | 2016-04-30 05:36 | XMS REPORT | Continuity of Care Document ---
Author Author [facility] Organization [facility] Address Unknown Phone Unavailable Care Team Providers Care Incident Response Engineer Name Role Phone LION ORTEGA DO PCP Insurance Providers Payer Name Policy Number Subscriber Name Relationship CIGNA [id number] Vishnu Loco 18 Self / Same As Patient Advance Directives Directive Response Recorded Date/Time Advance Directives No 04/02/16 7:00am Health Care Power of Bridges And Buildings Supervisor No 04/02/16 7:00am Resuscitation Status Full Code [...] - 99.5) 04/02/2016 1:11pm Temperature (Calculated Celsius) 36.22186 degrees C (36.4 - 37.5) 04/02/2016 11:55am [...] 3.00 inches 04/02/2016 7:00am Height (Calculated Centimeters) 190.986879 cm 04/02/2016 7:00am Weight (Pounds) 283 pounds 04/02/2016 7:00am Weight (Ounces) 0.0 oz 04/02/2016 7:00am Weight (Calculated Grams) 594312.64 gm 04/02/2016 7:00am Weight (Calculated Kilograms) 128.942137 kilograms 04/02/2016 7:00am Calculated BMI 35.4 04/02/2016 7:00am Results Pending Laboratory Results Test Name Collection Date/Time Pending Microbiology Results Procedure Source Collection Date/Time Procedures Procedure Status Date Provider(s) CYSTOSCOPY AND TREATMENT Completed 03/18/16 ROME SORENSEN MD FRAGMENTING OF KIDNEY STONE Completed 03/18/16 ORME SORENSEN MD Extracorporeal shockwave lithotripsy (ESWL) of right kidney Completed ROME SORENSEN MD Encounters Encounter Location Arrival/Admit Date Discharge/Depart Date Attending Provider Registered Surgical Day Care [facility] 04/02/16 6:52am ROME SORENSEN MD Departed Clinic [facility] 04/01/16 2:25pm 04/01/16 2: 32pm ROME SORENSEN MD Registered Clinic [facility] 03/31/16 1:46pm ROME SORENSEN MD Departed Surgical Day Care [facility] 03/18/16 6:35am 2:00pm ROME SORENSEN MD Departed Clinic [facility] 03/14/16 5:35am 03/14/16 10: 26am ROME SORENSEN MD
--- OUTSIDE RECORDS SUMMARY | 2016-05-05 05:44 | XMS REPORT | Continuity of Care Document ---
Author Author [facility] Organization [facility] Address Unknown Phone Unavailable Care Team Providers Care Cna Pct Name Role Phone LION ORTEGA DO PCP Insurance Providers Payer Name Policy Number Subscriber Name Relationship CIGNA [id number] Vishnu Loco 18 Self / Same As Patient Advance Directives Directive Response Recorded Date/Time Advance Directives No 04/02/16 7:00am Health Care Power of Computer Systems Security Administrator No 04/02/16 7:00am Resuscitation Status Full Code [...] 1:11pm Instructions/Education Provided ANESTHESIA INSTRUCTIONS POSTOP DR. OSRENSEN-ESWL Prescriptions See Medication Section Functional Status No functional status results. Allergies, Adverse Reactions, Alerts Allergen Type Severity Reaction Status Last Updated mushroom Allergy Unknown Active 03/14/16 Immunizations No immunization records. Vital Signs Acute Vital Signs Vital Response Date/Time Temperature (Fahrenheit) 97.9 degrees F (97.6 - 99.5) 04/02/2016 1:11pm Temperature (Calculated Celsius) 36.86514 degrees C (36.4 - 37.5) 04/02/2016 11:55am [...] 3.00 inches 04/02/2016 7:00am Height (Calculated Centimeters) 190.915767 cm 04/02/2016 7:00am Weight (Pounds) 283 pounds 04/02/2016 7:00am Weight (Ounces) 0.0 oz 04/02/2016 7:00am Weight (Calculated Grams) 643234.64 gm 04/02/2016 7:00am Weight (Calculated Kilograms) 128.766592 kilograms 04/02/2016 7:00am Calculated BMI 35.4 04/02/2016 [...] Attending Provider Registered Surgical Day Care [facility] 04/02/16 6:52am ROME SORENSEN MD Departed Clinic [facility] 04/01/16 2:25pm 04/01/16 2: 32pm ROME SORENSEN MD Registered Clinic [facility] 03/31/16 1:46pm ROME SORENSEN MD Departed Surgical Day Care [facility] 03/18/16 6:35am 2:00pm ROME SORENSEN MD Departed Clinic [facility] 03/14/16 5:35am 03/14/16 10: 26am ROME SORENSEN MD
[~2016-05-06] VITALS: Ht 190.5 cm; Wt 128.4 kg
[~2016-05-06 08:30] MED LIST changes: -CIPR-225 PO
--- OUTSIDE RECORDS SUMMARY | 2016-05-06 08:47 | XMS REPORT | Continuity of Care Document ---
Author Author [facility] Organization [facility] Address Unknown Phone Unavailable Care Team Providers Care Lang Interpreter Name Role Phone LION ORTEGA DO PCP Insurance Providers Payer Name Policy Number Subscriber Name Relationship CIGNA [id number] Vishnu Loco 18 Self / Same As Patient Advance Directives Directive Response Recorded Date/Time Advance Directives No 04/02/16 7:00am Health Care Power of Foamite Mixer No 04/02/16 7:00am Resuscitation Status Full Code [...] - 99.5) 04/02/2016 1:11pm Temperature (Calculated Celsius) 36.97413 degrees C (36.4 - 37.5) 04/02/2016 11:55am [...] 3.00 inches 04/02/2016 7:00am Height (Calculated Centimeters) 190.428918 cm 04/02/2016 7:00am Weight (Pounds) 283 pounds 04/02/2016 7:00am Weight (Ounces) 0.0 oz 04/02/2016 7:00am Weight (Calculated Grams) 728449.64 gm 04/02/2016 7:00am Weight (Calculated Kilograms) 128.719913 kilograms 04/02/2016 7:00am Calculated BMI 35.4 04/02/2016 [...] Attending Provider Registered Surgical Day Care [facility] 04/02/16 6:52am ROME SORENSEN MD Departed Clinic [facility] 04/01/16 2:25pm 04/01/16 2: 32pm ROME SORENSEN MD Registered Clinic [facility] 03/31/16 1:46pm ROME SORENSEN MD Departed Surgical Day Care [facility] 03/18/16 6:35am 2:00pm ROME SORENSEN MD Departed Clinic [facility] 03/14/16 5:35am 03/14/16 10: 26am ROME SORENSEN MD
[2016-05-07] MEDS ORDERED: TAMS0.4C98 PO (09:43)
[2016-05-07] MEDS ORDERED: CIPR-225 PO (09:43)
[2016-05-07] MEDS ORDERED: HYDR-3875 PO (09:43)
== END 2016-05-06 09:01 ==
LOC: PREOP 08:30
PROVIDERS: ATTEND Urology
DX: Z01.818 Encounter for other preprocedural examination (principal); N20.2 Calculus of kidney with calculus of ureter

== ENCOUNTER 2016-05-07 06:13 | Day surgery (SDC) | payer OTHER ==
[~2016-05-07] VITALS: Ht 190.5 cm; Wt 128.4 kg
--- OUTSIDE RECORDS SUMMARY | 2016-05-07 06:15 | XMS REPORT | Continuity of Care Document ---
Author Author [facility] Organization [facility] Address Unknown Phone Unavailable Care Team Providers Care Crystal Gazer Name Role Phone LION ORTEGA DO PCP Insurance Providers Payer Name Policy Number Subscriber Name Relationship CIGNA [id number] Vishnu Loco 18 Self / Same As Patient Advance Directives Directive Response Recorded Date/Time Advance Directives No 04/02/16 7:00am Health Care Power of Loin Puller No 04/02/16 7:00am Resuscitation Status Full Code [...] - 99.5) 04/02/2016 1:11pm Temperature (Calculated Celsius) 36.02498 degrees C (36.4 - 37.5) 04/02/2016 11:55am [...] 3.00 inches 04/02/2016 7:00am Height (Calculated Centimeters) 190.601371 cm 04/02/2016 7:00am Weight (Pounds) 283 pounds 04/02/2016 7:00am Weight (Ounces) 0.0 oz 04/02/2016 7:00am Weight (Calculated Grams) 427644.64 gm 04/02/2016 7:00am Weight (Calculated Kilograms) 128.298067 kilograms 04/02/2016 7:00am Calculated BMI 35.4 04/02/2016 [...] Attending Provider Registered Surgical Day Care [facility] 04/02/16 6:52am ROME SORENSEN MD Departed Clinic [facility] 04/01/16 2:25pm 04/01/16 2: 32pm ROME SORENSEN MD Registered Clinic [facility] 03/31/16 1:46pm ROME SORENSEN MD Departed Surgical Day Care [facility] 03/18/16 6:35am 2:00pm ROME SORENSEN MD Departed Clinic [facility] 03/14/16 5:35am 03/14/16 10: 26am ROME SORENSEN MD
--- OUTSIDE RECORDS SUMMARY | 2016-05-07 06:16 | XMS REPORT | Continuity of Care Document ---
Author Author [facility] Organization [facility] Address Unknown Phone Unavailable Care Team Providers Care Inspector Subassemblies Name Role Phone LION ORTEGA DO PCP Insurance Providers Payer Name Policy Number Subscriber Name Relationship CIGNA [id number] Vishnu Loco 18 Self / Same As Patient Advance Directives Directive Response Recorded Date/Time Advance Directives No 04/02/16 7:00am Health Care Power of German Professor No 04/02/16 7:00am Resuscitation Status Full Code [...] - 99.5) 04/02/2016 1:11pm Temperature (Calculated Celsius) 36.35362 degrees C (36.4 - 37.5) 04/02/2016 11:55am [...] 3.00 inches 04/02/2016 7:00am Height (Calculated Centimeters) 190.453342 cm 04/02/2016 7:00am Weight (Pounds) 283 pounds 04/02/2016 7:00am Weight (Ounces) 0.0 oz 04/02/2016 7:00am Weight (Calculated Grams) 117621.64 gm 04/02/2016 7:00am Weight (Calculated Kilograms) 128.647943 kilograms 04/02/2016 7:00am Calculated BMI 35.4 04/02/2016 [...] Attending Provider Registered Surgical Day Care [facility] 04/02/16 6:52am ROME SORENSEN MD Departed Clinic [facility] 04/01/16 2:25pm 04/01/16 2: 32pm ROME SORENSEN MD Registered Clinic [facility] 03/31/16 1:46pm ROME SORENSEN MD Departed Surgical Day Care [facility] 03/18/16 6:35am 2:00pm ROME SORENSEN MD Departed Clinic [facility] 03/14/16 5:35am 03/14/16 10: 26am ROME SORENSEN MD
[2016-05-07] MEDS ORDERED: LACTATED RINGERS 1,000 ML IV PRN (06:37)
[2016-05-07] MEDS ORDERED: cefTRIAXone 1 GM (ROCEPHIN) VIAL ONE (06:42)
[2016-05-07] MEDS ORDERED: NS (IVPB) 50 ML ONE (06:42)
[2016-05-07 06:51] VITALS: BP 150/107
[2016-05-07] MEDS ORDERED: cefTRIAXone 1 GM/NS 50 ML IVPB IV ONE ×2 (07:00)
[2016-05-07] MEDS ORDERED: ONDANSETRON 4 MG/2 ML (SDV) Z0FRAN ONE (07:02)
[2016-05-07] MEDS ORDERED: LACTATED RINGERS 1,000 ML IV ONE (07:02)
[2016-05-07] MEDS ORDERED: LIDOCAINE PF 2% 10 ML (XYLOCAINE) AMP ONE (07:02)
[2016-05-07] MEDS ORDERED: proPOfol 200 MG/20 ML (DIPRIVAN) VIAL IV ONE (07:02)
[2016-05-07] MEDS ORDERED: MIDAZOLAM 2 MG/2 ML (VERSED) VIAL ONE (07:02)
[2016-05-07] MEDS ORDERED: fentaNYL INJECTION 100 MCG/2 ML AMP ONE (07:02)
[2016-05-07] MEDS ORDERED: SEVOFLURANE (ULTANE) 15 ML INHAL SOLN ONE (07:03)
[2016-05-07] MEDS ORDERED: KETOROLAC 30 MG/ML VIAL ONE (07:03)
[2016-05-07] MEDS ORDERED: FUROSEMIDE 40 MG/4 ML INJ (LASIX) ONE (07:03)
--- NOTE | 2016-05-07 07:05 | Progress Note-Pre Operative ---
Pre-Operative Progress Note H&P Reviewed The H&P was reviewed, patient examined and no changes noted. Date H&P Reviewed: May 07, 2016 Time H&P Reviewed: 07:05 Pre-Operative Diagnosis: RT DISTAL URETERAL STONES ROME SORENSEN MD May 07, 2016 7:05 am
--- NOTE | 2016-05-07 07:06 | Progress Note-Post Operative ---
Post-Operative Progess Note Pre-Operative Diagnosis RT DISTAL URETERAL STONES Post-Operative Diagnosis SAME Post-Op Procedure Note Date of Procedure: May 07, 2016 Name of Procedure: CYSTO, DC STENT AND RT ESWL Anesthesia Type GENERAL ROME SORENSEN MD May 07, 2016 7:06 am
--- NOTE | 2016-05-07 07:07 | Discharge Inst-Urology ---
Discharge Inst-Urology Discharge Medications New, Converted, or Re-newed RX: RX on Chart Patient Instructions/Follow Up Plan Please make appointment to been seen in office in 2 weeks. KUB prior to it. KUB on way home Post ESWL instructions Increase oral fluids for 48 hours and then as needed. Diet and Activity as tolerated. If questions or concerns contact your physician Or seek help at emergency department. ROME SORENSEN MD May 07, 2016 7:07 am
--- NOTE | 2016-05-07 07:15 | Diagnostic Imaging Report ---
INDICATION: Post lithotripsy. FINDINGS: There is a ureteral catheter on the right which has migrated inferiorly and is now coiled within the bladder. There are calculi noted overlying the upper pole of both right and left kidney. These do not appear significantly changed since 05/05/2016. There are multiple calcifications noted along the distal right ureter adjacent to the right ureteral catheter which extends proximally to approximately the level of the upper sacrum. IMPRESSION: 1. Right ureteral stent has migrated with only approximately 1/3 of the catheter now present in the distal right ureter. There are multiple calculi along the distal ureteral catheter. 2. Upper pole calculi again noted overlying both kidneys. Dictated by: Dictated on workstation # [id number]
[2016-05-07] MEDS ORDERED: ONDANSETRON 4 MG/2 ML (SDV) Z0FRAN IVP PRN (08:15)
[2016-05-07] MEDS ORDERED: MEPERIDINE (DEMEROL) INJ 50 MG/ML IVP PRN (08:15)
[2016-05-07] MEDS ORDERED: morphine INJ 10 MG/ML 1ML (SYR OR VIAL) IVP PRN (08:15)
[2016-05-07 09:30] VITALS: BP 144/99
[2016-05-07] MEDS ORDERED: HYDR-3875 PO ×2 (09:43)
[2016-05-07] MEDS ORDERED: TAMS0.4C98 PO ×2 (09:43)
[2016-05-07] MEDS ORDERED: CIPR-225 PO ×2 (09:43)
[2016-05-07 10:00] VITALS: BP 135/91
[2016-05-07 10:30] VITALS: BP 127/90
--- NOTE | 2016-05-07 16:06 | Diagnostic Imaging Report ---
INDICATION: Status post right-sided ESWL. COMPARISON: Earlier same day. FINDINGS: Two supine radiographic views of the abdomen were obtained. Again identified are renal calculi involving the superior and inferior right renal poles as well as the superior pole on the left. There is small rounded calculus projecting along the proximal right psoas at the level of the L3 vertebral body. Multiple calculi are also seen in a Steinstrasse configuration in the right hemipelvis. Right-sided double-J ureteral stent has since been removed. Small bowel loops are nondistended. There is no large collection of free intraperitoneal air. No unexpected radiopaque foreign bodies are seen. IMPRESSION: 1. Steinstrasse appearance within the right hemipelvis consistent with multiple calculi within the distal right ureter. 2. Possible calculus within the proximal right ureter. 3. Bilateral renal calculi. Dictated by: Dictated on workstation # [id number]
--- NOTE | 2016-05-08 09:21 | OPERATIVE REPORT ---
PROCEDURE PHYSICIAN: ROME SORENSEN DATE OF PROCEDURE: 05/07/2016 PREOPERATIVE DIAGNOSES: 1. Right distal ureteral stone. 2. Bilateral renal stones. POSTOPERATIVE DIAGNOSES: 1. Right distal ureteral stone. 2. Bilateral renal stones. OPERATION PERFORMED: 1. Cystoscopy. 2. Removal of right double-J stent. 3. Right ESWL. SURGEON: Dr. Sorensen. ANESTHESIA: General. COMPLICATIONS: None. PROCEDURE: Under satisfactory general anesthesia, the patient in supine position on the ESWL table, genitalia were prepped and draped in usual sterile fashion. Flexible cystoscope was introduced under vision and the distal end of the right ureteral stent was grasped with the grasping forces and removed totally. Then we localized the right distal ureteral stone obstructing distally the bigger 2 stones. They were completely fragmented. A total of 3000 shocks were delivered at KV of 6. The patient received 30 mg of Toradol and 40 mg of Lasix at the end of the procedure. He tolerated the procedure and anesthesia well and was sent to recovery room in stable condition. Job ID: [id number] Dictated Date: 05/07/2016 07:56:21 Station Engineer Date: 05/08/2016 09:18:31 / jodie
== END 2016-05-07 11:15 | disposition home or self-care (01) ==
LOC: SDC 06:13
PROVIDERS: ATTEND Urology
DX: N20.1 Calculus of ureter (principal); N20.0 Calculus of kidney; Z11.2 Encounter for screening for other bacterial diseases
CPT/HCPCS: 74000; 87081

== ENCOUNTER → 2016-06-03 | Outpatient (CLI) | payer OTHER ==
[~2016-06-03] MED LIST changes: +CIPR-225 PO
--- NOTE | 2016-06-03 17:45 | Diagnostic Imaging Report ---
EXAMINATION: Abdomen at 3:54 p.m. INDICATION: Nephrolithiasis. FINDINGS: The previous exam of 05/07/2016 noted multiple calculi overlying the distal right ureter. On this exam, those calculi are no longer evident. There are still a few phleboliths low in the pelvis on the right. These are unchanged when compared to the prior study. The previous study also suggested a calcification lying just lateral to the right transverse process of L3. That calcification is not identified either. The calcific densities overlying the right kidney seen previously are also less conspicuous on this exam. The calcifications overlying the superior poles of the kidneys seen previously are again visualized and no different. IMPRESSION: 1. The numerous calculi overlying the distal right ureter seen previously are no longer visualized. The calculus adjacent to the right transverse process of L3 seen previously cannot be identified either. 2. There are still calculi overlying both kidneys. Dictated by: Dictated on workstation # [id number]
== END ==
LOC: RAD 15:29
PROVIDERS: ATTEND Urology
DX: N20.1 Calculus of ureter (principal); Z98.890 Other specified postprocedural states
CPT/HCPCS: 74000

== ENCOUNTER → 2016-09-03 | Outpatient (CLI) | payer OTHER ==
--- NOTE | 2016-09-03 17:53 | Diagnostic Imaging Report ---
INDICATION: Nephrolithiasis. KUB at 5:15 PM FINDINGS: There is a 4 mm stone projecting over the upper pole of the right kidney. There is a 12 mm stone projecting over the inferior pole of the right kidney and a second stone 5 mm in diameter adjacent to this. There are calcified phleboliths in the pelvis. IMPRESSION: Bilateral nephrolithiases. Dictated by: Dictated on workstation # [id number]
== END ==
LOC: RAD 16:31
PROVIDERS: ATTEND Urology
DX: N20.0 Calculus of kidney (principal)
CPT/HCPCS: 74000

== ENCOUNTER → 2017-07-22 | Outpatient (CLI) | payer OTHER ==
--- NOTE | 2017-07-22 09:45 | Diagnostic Imaging Report ---
PROCEDURE: US Gallbladder. TECHNIQUE: Multiple real-time grayscale images were obtained over the right upper quadrant in various projections. INDICATION: Right upper quadrant pain. The liver is enlarged at 23.6 cm. There is diffuse increased echogenicity consistent with hepatic steatosis. No discrete liver mass is identified. The gallbladder is without stones or sludge. No wall thickening is seen. There is some ringdown artifact in the gallbladder wall, perhaps owing due to adenomyomatosis. No biliary duct dilatation is seen. The pancreas is obscured by bowel gas. Right kidney is unremarkable apart from a 2.8 cm cyst. No calculi or hydronephrosis is seen. There is no ascites. IMPRESSION: 1. Hepatomegaly and hepatic steatosis. 2. No evidence of cholelithiasis or acute cholecystitis. 3. Right renal cyst. Dictated by: Dictated on workstation # [id number]
== END ==
LOC: RAD 07:06
PROVIDERS: ATTEND Nurse Practitioner Family
DX: K76.0 Fatty (change of) liver, not elsewhere classified (principal); N28.1 Cyst of kidney, acquired
CPT/HCPCS: 76705

== ENCOUNTER → 2021-07-14 | Day surgery (SDC) | payer SELFPAY ==
[~2021-07-14] MED LIST changes: +CATHETER FLUSH 10 ML SYR IV PRN; +HOLD METFORMIN - RECEIVED CONTRAST 20 ML VIAL IV SCH; -INDO50CA PO; +INDO50CA82 PO; +IOHEXOL 350 MG/ML 100 ML (OMNIPAQUE 350) VIAL IV ONE; +LACTATED RINGERS 1,000 ML IV ONE; +LIDOCAINE PF 2% 5 ML (XYLOCAINE) VIAL ONE; +MIDAZOLAM 2 MG/2 ML (VERSED) VIAL ONE; +NS 100 ML (IVPB) BAG IV ONE; +PANT40TA2 PO; -RANI-515 PO; +RANI-609 PO; +SEVOFLURANE (ULTANE) 15 ML INHAL SOLN ONE; +SUCCINYLCHOLINE INJ 100 MG/5 ML SYR/VIAL ONE; -TAMS0.4C98 PO; +TMSL.4C PO; +proPOfol 200 MG/20 ML (DIPRIVAN) VIAL IV ONE
[2021-07-14 19:33] LABS: ALBUMIN 4.1 GM/DL (3.2-4.5); POTASSIUM 3.7 MMOL/L (3.6-5.0)
[2021-07-14 19:34] LABS: CALCIUM 9.1 MG/DL (8.5-10.1)
--- NOTE | 2021-07-14 19:34 | ED General ---
General Chief Complaint: Oral/Throat Problems Stated Complaint: DIFF SWALLOWING/R SIDE PAIN Source of Information: Patient (VAGUE HISTORIAN) History of Present Illness Date Seen by Provider: July 14, 2021 Time Seen by Provider: 19:04 Initial Comments PT ARRIVES VIA POV FROM HOME WITH BROTHER PT C/O DIFFICULTY SWALLOWING FOR OVER A YEAR, BUT WORSE OVER THE LAST MONTH, AND IS WORSE TODAY--STATES FOOD WON'T GO DOWN TODAY, NOR LIQUIDS PROBLEMS HAVE MOSTLY BEEN WITH SOLID FOOD, BUT TODAY, NO FOOD OR ANY LIQUID WILL GO DOWN. STATES HE HAS BEEN "VOMITING" "CLEAR PHLEGM" TODAY, BUT NO ACTUAL NAUSEA NO PAIN ON SWALLOWING NO DIFFICULTY TALKING NO CHOKING SENSATION, ETC. NO FEVER NO COUGH OR URI SYMPTOMS NO DIFFICULTY BREATHING ALSO C/O RUQ PAIN FOR OVER A YEAR, HAS NOT SOUGHT CARE AT ANY TIME UNTIL TODAY NO DIFFERENT TODAY NO URINARY SYMPTOMS NO DIARRHEA OR CONSTIPATION SYMPTOMS ARE WORSE WITH EATING ANYTHING NO RADIATION OF PAIN HAS NOT TAKEN ANYTHING FOR PAIN PT WENT TO [facility] TODAY FOR THIS PROBLEM AND WAS GIVEN RX FOR PREDNISONE, THEN WAS TOLD TO COME HERE, NO CALL FROM [facility]. PT STATES HE HAS NO MEDICAL PROBLEMS. NEVER HAD SURGERY AND DOES NOT TAKE ANY MEDICATIONS AND DOES NOT GO TO THE DR. PT SMOKES CIGARS, RARELY DRINKS ALCOHOL, DENIES DRUG USE PCP: [facility]--RARELY GOES THERE, PER PT Allergies and Home Medications Allergies Coded Allergies: mushroom (Verified Allergy, Unknown, 03/14/16) Patient Home Medication List Home Medication List Reviewed: Yes Allopurinol (Allopurinol) 100 Mg Tablet, 100 MG PO DAILY PRN for GOUT PAIN, (Reported) Entered as Reported by: MAG FUNEZ on 03/14/16 1016 Ciprofloxacin HCl (Cipro) 500 Mg Tablet, 1 TAB PO BID Prescribed by: ANCELMO PATEL on 05/07/16 0943 Hydrocodone/Acetaminophen (Lorcet Plus 7.5-325 mg Tablet) 1 Each Tablet, 1-2 EACH PO Q4H Prescribed by: LEILA BERNAL on 03/18/16 1108 Hydrocodone/Acetaminophen (Lorcet Plus 7.5-325 mg Tablet) 1 Each Tablet, 1-2 TAB PO Q4H PRN for PAIN Prescribed by: ANCELMO PATEL on 05/07/16 09 Indomethacin (Indomethacin) 50 Mg Capsule, 50 MG PO BID PRN for GOUT PAIN, (Reported) Entered as Reported by: MAG FUNEZ on 03/14/16 1016 Nitrofurantoin Monohyd/M-Cryst (Macrobid 100 mg Capsule) 100 Mg Capsule, 1 TAB PO BID Prescribed by: JAYLYN ZAMORA on 04/02/16 1207 Pantoprazole Sodium (Protonix) 40 Mg Tablet.dr, 40 MG PO DAILY Prescribed by: HUDSON SNYDER on 07/14/21 222 Pantoprazole Sodium (Protonix) 40 Mg Tablet.dr, 40 MG PO DAILY Prescribed by: HUDSON SNYDER on 07/14/21 222 Ranitidine HCl (Acid Sugar Trucker (RANITIDINE)) 150 Mg Tablet, 150 MG PO DAILY PRN for HEARTBURN, (Reported) Entered as Reported by: MAG FUNEZ on 03/14/16 1016 Tamsulosin HCl (Flomax) 0.4 Mg Cap, 1 CAP PO DAILY Prescribed by: ANCELMO PATEL on 05/07/16 0943 Triamterene/Hydrochlorothiazid (Triamterene-Hctz 37.5-25 mg Tb) 1 Each Tablet, 1 EACH PO DAILY, (Reported) Entered as Reported by: MAG FUNEZ on 03/14/16 1016 Review of Systems Review of Systems Constitutional: no symptoms reported EENTM: see HPI Respiratory: no symptoms reported Cardiovascular: no symptoms reported Gastrointestinal: see HPI, abdominal pain, dysphagia Genitourinary: no symptoms reported Musculoskeletal: no symptoms reported Skin: no symptoms reported Psychiatric/Neurological: No Symptoms Reported Hematologic/Lymphatic: No Symptoms Reported Immunological/Allergic: no symptoms reported Past Pxlktch-Niupmx-Jgzgyb Hx Patient Social History Tobacco Use?: Yes Tobacco type used: Cigars Smoking Status: Current Someday Smoker Substance use?: No Alcohol Use?: Yes Alcohol Frequency: Rarely Immunizations Up To Date Tetanus Booster (TDap): Unknown Seasonal Allergies Seasonal Allergies: Yes Past Medical History Surgeries: No Respiratory: No Cardiac: Yes (PT DENIES MEDICAL PROBLEMS, BUT HTN NOTED ON OLD CHARTS) Hypertension Neurological: No Reproductive Disorders: No Sexually Transmitted Disease: No HIV/AIDS: No Genitourinary: Yes (PT DENIES MEDICAL PROBLEMS, BUT PER OLD CHART) Kidney Stones Gastrointestinal: Yes (DENIES MEDICAL PROBLEMS, BUT PER OLD CHART) Irritable Bowel Musculoskeletal: Yes (DENIES MEDICAL PROBLEMS, BUT PER OLD CHART) Gout Endocrine: Yes (OBESITY) HEENT: No Loss of Vision: Bilateral Hearing Impairment: Denies Cancer: No Psychosocial: No Integumentary: No Blood Disorders: No Family Medical History No Pertinent Family Hx Physical Exam Vital Signs Vital Signs - First Documented 07/14/21 19:04 Temp 36.3 Pulse 93 Resp 18 B/P (MAP) 187/119 (141) Capillary Refill : Height, Weight, BMI Height: 6'3.00" Weight: 283lbs. 0.0oz. 128.235233pm; 35.4 BMI Method:Stated General Appearance: No Apparent Distress, WD/WN, Obese, Other (TALKS NON-STOP AT LENGTH. ) HEENT: PERRL/EOMI, Normal ENT Inspection, Pharynx Normal, Moist Mucous Membranes, Other (NO DROOLING OR COUGHING/CHOKING OR DIFFICULTY HANDLING SE CRETIONS. SPEECH IS CLEAR. ) Neck: Normal Inspection Respiratory: Normal Breath Sounds, No Accessory Muscle Use, No Respiratory Distress Cardiovascular: Regular Rate, Rhythm, No Murmur Gastrointestinal: Soft, Tenderness (RUQ TENDERNESS. 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 Norm as Tested Skin: Normal Color, Warm/Dry; No Rash Progress/Results/Core Measures Suspected Sepsis SIRS Temperature: Pulse: Respiratory Rate: Laboratory Tests 07/14/21 19:15: White Blood Count 7.5 Blood Pressure / Mean: Laboratory Tests 07/14/21 19:15: Creatinine 0.69, Platelet Count 152, Total Bilirubin 0.9 Results/Orders Lab Results Laboratory Tests Test 07/14/21 19:15 07/14/21 19:28 Range/Units White Blood Count 7.5 4.3-11.0 10^3/uL Red Blood Count 5.23 4.30-5.52 10^6/uL Hemoglobin 15.8 13.3-17.7 g/dL Hematocrit 45 40-54 % Mean Corpuscular Volume 85 80-99 fL Mean Corpuscular Hemoglobin 30 25-34 pg Mean Corpuscular Hemoglobin Concent 36 32-36 g/dL Red Cell Distribution Width 13.2 10.0-14.5 % Platelet Count 152 130-400 10^3/uL Mean Platelet Volume 8.9 L 9.0-12.2 fL Immature Granulocyte % (Auto) 0 % Neutrophils (%) (Auto) 48 42-75 % Lymphocytes (%) (Auto) 38 12-44 % Monocytes (%) (Auto) 9 0-12 % Eosinophils (%) (Auto) 5 0-10 % Basophils (%) (Auto) 1 0-10 % Neutrophils # (Auto) 3.6 1.8-7.8 10^3/uL Lymphocytes # (Auto) 2.8 1.0-4.0 10^3/uL Monocytes # (Auto) 0.6 0.0-1.0 10^3/uL Eosinophils # (Auto) 0.4 H 0.0-0.3 10^3/uL Basophils # (Auto) 0.1 0.0-0.1 10^3/uL Immature Granulocyte # (Auto) 0.0 0.0-0.1 10^3/uL Sodium Level 137 135-145 MMOL/L Potassium Level 3.7 3.6-5.0 MMOL/L Chloride Level 100 98-107 MMOL/L Carbon Dioxide Level 22 21-32 MMOL/L Anion Gap 15 H 5-14 MMOL/L Blood Urea Nitrogen 8 7-18 MG/DL Creatinine 0.69 0.60-1.30 MG/DL Estimat Glomerular Filtration Rate 109 BUN/Creatinine Ratio 12 Glucose Level 154 H 70-105 MG/DL Calcium Level 9.1 8.5-10.1 MG/DL Corrected Calcium 9.0 8.5-10.1 MG/DL Magnesium Level 1.8 1.6-2.4 MG/DL Total Bilirubin 0.9 0.1-1.0 MG/DL Aspartate Amino Transf (AST/SGOT) 55 H 5-34 U/L Alanine Aminotransferase (ALT/SGPT) 61 H 0-55 U/L Alkaline Phosphatase 54 40-136 U/L Total Protein 7.5 6.4-8.2 GM/DL Albumin 4.1 3.2-4.5 GM/DL Amylase Level 25 25-125 U/L Lipase 19 8-78 U/L Urine Color YELLOW Urine Clarity CLEAR Urine pH 6.5 5-9 Urine Specific [place] 1.020 1.016-1.022 Urine Protein NEGATIVE NEGATIVE Urine Glucose (UA) NEGATIVE NEGATIVE Urine Ketones TRACE H NEGATIVE Urine Nitrite NEGATIVE NEGATIVE Urine Bilirubin NEGATIVE NEGATIVE Urine Urobilinogen 0.2 < = 1.0 MG/DL Urine Leukocyte Esterase NEGATIVE NEGATIVE Urine RBC (Auto) NEGATIVE NEGATIVE Urine RBC 0-2 /HPF Urine WBC 0-2 /HPF Urine Squamous Epithelial Cells RARE /HPF Urine Crystals NONE /LPF Urine Bacteria TRACE /HPF Urine Casts NONE /LPF Urine Mucus SMALL H /LPF Urine Culture Indicated NO My Orders Orders - MANDY QUINTANILLA DO Ed Iv/Invasive Line Start (07/14/21 19:14) Monitor-Rhythm Ecg Trace Only (07/14/21 19:14) Amylase (07/14/21:14) Cbc With Automated Diff (07/14/21:14) Comprehensive Metabolic Panel (07/14/21:) Lipase (07/14/21:) Magnesium (07/14/21:14) Ua Culture If Indicated (07/14/21:14) Chest 1 View, Ap/Pa Only (07/14/21:14) Ed Iv/Invasive Line Start (07/14/21 19:14) Lactated Ringers (Lr 1000 Ml Iv Solution (07/14/21 19:15) Ct Neck/Chest/Abdomen/Pelvis W (07/14/21 19:14) Iohexol Injection (Omnipaque 350 Mg/Ml 1 (07/14/21 19:30) Received Contrast (Hold Metformin- Contr (07/14/21 19:30) Ns (Ivpb) (Sodium Chloride 0.9% Ivpb Bag (07/14/21 19:30) Sodium Chloride Flush (Catheter Flush Sy (07/14/21 19:30) Medications Given in ED Current Medications Medications Dose Ordered Sig/Lindy Route Start Time Stop Time Status Last Admin Dose Admin Iohexol 100 ml ONCE ONCE IV 07/14/21 19:30 07/14/21 19:31 DC 07/14/21 20:01 100 ML Lactated Ringer's 1,000 ml @ 0 mls/hr Q0M ONCE IV 07/14/21 19:15 07/14/21 19:19 DC 07/14/21 19:27 1,000 MLS/HR Sodium Chloride 10 ml NEEDED PRN IV 07/14/21 19:30 07/14/21 20:02 10 ML Sodium Chloride 100 ml ONCE ONCE IV 07/14/21 19:30 07/14/21 19:31 DC 07/14/21 20:02 80 ML Vital Signs/I&O 07/14/21 19:04 Temp 36.3 Pulse 93 Resp 18 B/P (MAP) 187/119 (141) 07/15/21 00:00 Intake Total 1000 ml Balance 1000 ml Capillary Refill : Progress Note : Progress Note UNEVENTFUL ER STAY DISCUSSED ELEVATED BLOOD PRESSURE--PT NOW ADMIT THAT HE IS SUPPOSED TO BE ON BLOOD PRESSURE MEDICATION BUT SIMPLY QUIT TAKING IT "A LONG TIME AGO" --ADVISED HIM THAT HE SHOULD START TAKING IT AGAIN, EVERY DAY, AND FOLLOW UP WITH HIS PCP THIS WEEK FOR FURTHER EVALUATION FOR THAT. Diagnostic Imaging Comments CXR--PER RADIOLOGIST REPORT AT 2047 FINDINGS: The heart size, mediastinal configuration and pulmonary vascularity are within normal limits. Lung montoya are clear. No infiltrate. IMPRESSION: Negative appearing single view chest. CT NECK/CHEST/ABDOMEN/PELVIS--PER RADIOLOGIST REPORT AT 2057 FINDINGS: CTA NECK: Nasopharynx and oropharynx unremarkable. Hypopharynx unremarkable. Vallecula and epiglottis unremarkable. Vocal cords symmetric. Subglottic airway patent. The limited visualized portions of the cervical esophagus unremarkable. Mandibular incisors remain with the patient otherwise edentulous. Bony resorption of the maxilla and mandible. Paranasal sinuses are clear. The visualized parotid, submandibular and thyroid glands appear fairly symmetric and unremarkable. A few shotty bilateral cervical lymph nodes without definitive pathologically enlarged lymphadenopathy. Parapharyngeal fat planes are preserved. No significant carotid calcification. CT CHEST: Heart size normal with scattered coronary desiccation. Thoracic aorta unremarkable. A few shotty but non-pathologically enlarged mediastinal lymph nodes. There is presence of a small hiatal hernia. Soft tissue density, approximately 2.2 cm, is noted within the lumen of the low esophagus. Just proximal to this area is some circumferential wall thickening in low esophagus. Mildly prominent but non-pathologically enlarged low paraesophageal lymph node. Lung montoya are clear. No infiltrate, effusion or pneumothorax. CT ABDOMEN and PELVIS: Liver is enlarged with mild to moderate severity steatosis. Gallbladder, pancreas and adrenal glands demonstrate no acute findings. Spleen unremarkable. Probable bilateral renal cysts. No obstructing renal stones. No ureteric calcification or obstruction. Abdominal aorta normal in contour. A few shotty upper abdominal mesenteric lymph nodes. Stomach is relatively collapsed. No small bowel obstruction. Colon also relatively decompressed. No abdominal ascites and/or free air. Urinary bladder decompressed. Prostate gland unremarkable. Visualized thoracic and lumbar spine demonstrates no acute findings. IMPRESSION: CTA neck: 1. Relatively unremarkable CT examination of the neck. CT chest: 1. Concern for potential mass in the low esophagus. Correlation with endoscopy would be recommended. Small hiatal hernia with some additional circumferential wall thickening also present. 2. A few shotty mediastinal lymph nodes including adjacent to the low esophagus. No definitive pathologically enlarged lymph nodes. CT abdomen and pelvis: 1. Hepatomegaly with hepatic steatosis. 2. Nonobstructing renal stones, left greater than right, along with bilateral renal cortical cysts. Reviewed: Reviewed by Me Departure Communication (Admissions) 2058--SPOKE WITH DR. SNYDER, WILL BE IN TO SEE PT, ADVISES TO CALL IN ENDOSCOPY STAFF. 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 2122--DR. SNYDER HERE TO SEE PT. DISCUSSED PT'S ADDITIONAL C/O RUQ PAIN AND WILL ORDER OUTPATIENT ULTRASOUND AND HIDA SCAN AND HAVE PT FOLLOW UP WITH HIM IN OFFICE FOR THESE RESULTS. 2333--PT IS BACK FROM ENDOSCOPY, AFTER BEING RECOVERED IN ICU. NOW BROUGHT BACK DOWN TO ER FOR DISMISSAL. PT IS STABLE AND NO COMPLAINTS. Impression Primary Impression: Esophageal obstruction Additional Impressions: Chronic RUQ pain ESOPHAGEAL OBSTRUCTION WITH FOOD BOLUS Esophagitis HTN (hypertension) Disposition: 01 HOME, SELF-CARE Condition: Improved Departure-Patient Inst. Decision time for Depature: 23:45 Referrals: HUDSON SNYDER DO [facility] Patient Instructions: Abdominal Pain, Adult ED, Acid Reflux and Gastroesoph ageal Reflux Disease in Adults, Food Obstruction, High Blood Pressure ED Add. Discharge Instructions: CLEAR LIQUIDS DIET FOR 3 DAYS--WATER, BROTH, JELLO, GATORADE THEN START A SOFT BLAND DIET--BANANAS, RICE, APPLESAUCE, MASHED POTATOES, ETC. NO SPICY, GREASY, HIGH FAT OR ACIDIC FOODS OR DRINKS CALL IN THE MORNING TO SCHEDULE OUTPATIENT ABDOMINAL ULTRASOUND AND HIDA SCAN FOR FURTHER EVALUATION OF YOUR ABDOMINAL PAIN FOLLOW UP WITH [facility] THIS WEEK FOR FURTHER EVALUATION OF BLOOD PRESSURE FOLLOW UP WITH DR. SNYDER THIS WEEK FOR FOLLOW UP AFTER YOUR PROCEDURE AND FOR FURTHER EVALUATION OF ABDOMINAL PAIN All discharge instructions reviewed with patient and/or family. Voiced understanding. Scripts Pantoprazole Sodium (Protonix) 40 Mg Tablet.dr 40 MG PO DAILY, #30 TAB 3 Refills Prov: HUDSON SNYDER DO 07/14/21 Pantoprazole Sodium (Protonix) 40 Mg Tablet.dr 40 MG PO DAILY, #30 TAB 3 Refills Prov: HUDSON SNYDER DO 07/14/21 MANDY QUINTANILLA DO July 14, 2021 19:34
[2021-07-14 19:35] LABS: BASOPHILS # (AUTO) 0.1 10^3/uL (0.0-0.1); BASOPHILS % (AUTO) 1 % (0-10); EOSINOPHILS # (AUTO) 0.4 10^3/uL (0.0-0.3); EOSINOPHILS % (AUTO) 5 % (0-10); HEMATOCRIT 45 % (40-54); HEMOGLOBIN 15.8 g/dL (13.3-17.7); LYMPHOCYTES # (AUTO) 2.8 10^3/uL (1.0-4.0); LYMPHOCYTES % (AUTO) 38 % (12-44); MEAN CORPUSCULAR HEMOGLOBIN 30 pg (25-34); MEAN CORPUSCULAR HGB CONC 36 g/dL (32-36); MEAN CORPUSCULAR VOLUME 85 fL (80-99); MEAN PLATELET VOLUME 8.9 fL (9.0-12.2); MONOCYTES # (AUTO) 0.6 10^3/uL (0.0-1.0); MONOCYTES % (AUTO) 9 % (0-12); NEUTROPHILS # (AUTO) 3.6 10^3/uL (1.8-7.8); NEUTROPHILS % (AUTO) 48 % (42-75); PLATELET COUNT 152 10^3/uL (130-400); TOTAL PROTEIN 7.5 GM/DL (6.4-8.2); WHITE BLOOD COUNT 7.5 10^3/uL (4.3-11.0)
[2021-07-14 19:35] LABS: BILIRUBIN,URINE NEGATIVE (NEGATIVE); CLARITY,URINE CLEAR; COLOR,URINE YELLOW; GLUCOSE, URINE (UA) NEGATIVE (NEGATIVE); KETONES,URINE TRACE (NEGATIVE); LEUKOCYTE ESTERASE ,URINE NEGATIVE (NEGATIVE); NITRITE,URINE NEGATIVE (NEGATIVE); PH,URINE 6.5 (5-9); PROTEIN,URINE NEGATIVE (NEGATIVE)
[2021-07-14 19:37] LABS: BILIRUBIN,TOTAL 0.9 MG/DL (0.1-1.0)
[2021-07-14 19:42] LABS: BACTERIA,URINE TRACE /HPF; RBC,URINE 0-2 /HPF; SQUAMOUS EPITHELIAL CELL,UR RARE /HPF; WBC,URINE 0-2 /HPF
[2021-07-14 19:42] LABS: MAGNESIUM 1.8 MG/DL (1.6-2.4)
[2021-07-14 19:43] LABS: CREATININE SERUM 0.69 MG/DL (0.60-1.30)
--- NOTE | 2021-07-14 20:33 | Diagnostic Imaging Report ---
INDICATION: Dysphagia. TECHNIQUE: Single view chest 7:45 PM. CORRELATION STUDY: None. FINDINGS: The heart size, mediastinal configuration and pulmonary vascularity are within normal limits. Lung montoya are clear. No infiltrate. IMPRESSION: Negative appearing single view chest. Dictated by: Dictated on workstation # [id number]
--- NOTE | 2021-07-14 20:50 | Diagnostic Imaging Report ---
INDICATION: 55-year-old male, dysphagia, right-sided pain. Pain is below neck but above stomach. TECHNIQUE: CT imaging of the neck, chest, abdomen and pelvis following administration of IV contrast. Sagittal and coronal reformatted images. Auto Exposure Controls were utilized during the CT exam to meet ALARA standards for radiation dose reduction. CORRELATION: CT abdomen and pelvis 01/14/2013. FINDINGS: CT NECK: Nasopharynx and oropharynx unremarkable. Hypopharynx unremarkable. Vallecula and epiglottis unremarkable. Vocal cords symmetric. Subglottic airway patent. The limited visualized portions of the cervical esophagus unremarkable. Mandibular incisors remain with the patient otherwise edentulous. Bony resorption of the maxilla and mandible. Paranasal sinuses are clear. The visualized parotid, submandibular and thyroid glands appear fairly symmetric and unremarkable. A few shotty bilateral cervical lymph nodes without definitive pathologically enlarged lymphadenopathy. Parapharyngeal fat planes are preserved. No significant carotid calcification. CT CHEST: Heart size normal with scattered coronary desiccation. Thoracic aorta unremarkable. A few shotty but non-pathologically enlarged mediastinal lymph nodes. There is presence of a small hiatal hernia. Soft tissue density, approximately 2.2 cm, is noted within the lumen of the low esophagus. Just proximal to this area is some circumferential wall thickening in low esophagus. Mildly prominent but non-pathologically enlarged low paraesophageal lymph node. Lung montoya are clear. No infiltrate, effusion or pneumothorax. CT ABDOMEN and PELVIS: Liver is enlarged with mild to moderate severity steatosis. Gallbladder, pancreas and adrenal glands demonstrate no acute findings. Spleen unremarkable. Probable bilateral renal cysts. No obstructing renal stones. No ureteric calcification or obstruction. Abdominal aorta normal in contour. A few shotty upper abdominal mesenteric lymph nodes. Stomach is relatively collapsed. No small bowel obstruction. Colon also relatively decompressed. No abdominal ascites and/or free air. Urinary bladder decompressed. Prostate gland unremarkable. Visualized thoracic and lumbar spine demonstrates no acute findings. IMPRESSION: CT NECK: 1. Relatively unremarkable CT examination of the neck. CT CHEST: 1. Concern for potential mass in the low esophagus. Correlation with endoscopy is recommended. Small hiatal hernia with some additional circumferential wall thickening also present. 2. A few shotty mediastinal lymph nodes including adjacent to the low esophagus. No definitive pathologically enlarged lymph nodes. CT ABDOMEN AND PELVIS: 1. Hepatomegaly with hepatic steatosis. 2. Nonobstructing renal stones, left greater than right, along with bilateral renal cortical cysts. Dictated by: Dictated on workstation # [id number]
--- NOTE | 2021-07-14 21:52 | Consultation - Surgery ---
History of Present Illness History of Present Illness Patient Consulted On(goyo/time) 07/14/21 21:41 Date Seen by Provider: July 14, 2021 Time Seen by Provider: 21:42 History of Present Illness seen and evaluated in ed 55 year old male having difficulty swallowing for about last year. On and off. Usually more with solids food. Usually water will wash it down. Not able to go down today. Having to spit up secretions. Also been having ruq abdominal pain on and off after eating. Becomes more tender. No radiation of pain. Denies fever sweats chills shortness of breath or chest pain. CTA neck: 1. Relatively unremarkable CT examination of the neck. CT chest: 1. Concern for potential mass in the low esophagus. Correlation with endoscopy would be recommended. Small hiatal hernia with some additional circumferential wall thickening also present. 2. A few shotty mediastinal lymph nodes including adjacent to the low esophagus. No definitive pathologically enlarged lymph nodes. CT abdomen and pelvis: 1. Hepatomegaly with hepatic steatosis. 2. Nonobstructing renal stones, left greater than right, along with bilateral renal cortical cysts. Allergies and Home Medications Allergies Coded Allergies: mushroom (Verified Allergy, Unknown, 03/14/16) Patient Home Medication List Home Medication List Reviewed: Yes Allopurinol (Allopurinol) 100 Mg Tablet, 100 MG PO DAILY PRN for GOUT PAIN, (Reported) Entered as Reported by: MAG FUNEZ on 03/14/16 1016 Ciprofloxacin HCl (Cipro) 500 Mg Tablet, 1 TAB PO BID Prescribed by: ANCELMO PATEL on 05/07/16 0943 Hydrocodone/Acetaminophen (Lorcet Plus 7.5-325 mg Tablet) 1 Each Tablet, 1-2 EACH PO Q4H Prescribed by: LEILA BERNAL on 03/18/16 1108 Hydrocodone/Acetaminophen (Lorcet Plus 7.5-325 mg Tablet) 1 Each Tablet, 1-2 TAB PO Q4H PRN for PAIN Prescribed by: ANCELMO PATEL on 05/07/16 0943 Indomethacin (Indomethacin) 50 Mg Capsule, 50 MG PO BID PRN for GOUT PAIN, (Reported) Entered as Reported by: MAG FUNEZ on 03/14/16 1016 Nitrofurantoin Monohyd/M-Cryst (Macrobid 100 mg Capsule) 100 Mg Capsule, 1 TAB PO BID Prescribed by: JAYLYN ZAMORA on 04/02/16 1207 Ranitidine HCl (Acid Nurseryman Assistant (RANITIDINE)) 150 Mg Tablet, 150 MG PO DAILY PRN for HEARTBURN, (Reported) Entered as Reported by: MAG FUNEZ on 03/14/16 1016 Tamsulosin HCl (Flomax) 0.4 Mg Cap, 1 CAP PO DAILY Prescribed by: ANCELMO PATEL on 05/07/16 0943 Triamterene/Hydrochlorothiazid (Triamterene-Hctz 37.5-25 mg Tb) 1 Each Tablet, 1 EACH PO DAILY, (Reported) Entered as Reported by: MAG FUNEZ on 03/14/16 1016 Past Hkscctg-Jecwys-Evtqwr Hx Patient Social History Smoking Status: Current Someday Smoker Former Smoker, Quit: Mar 14, 1996 Type Used: Cigarettes, Pipe Recent Hopitalizations: No Alcohol Use?: No Have you traveled recently?: No Immunizations Up To Date Tetanus Booster (TDap): Unknown Seasonal Allergies Seasonal Allergies: Yes Surgeries History of Surgeries: No Respiratory History of Respiratory Disorde: No Cardiovascular History of Cardiac Disorders: Yes (PT DENIES MEDICAL PROBLEMS, BUT HTN NOTED ON OLD CHARTS) Cardiac Disorders: Hypertension Neurological History of Neurological Disord: No Reproductive System Hx Reproductive Disorders: No Sexually Transmitted Disease: No HIV/AIDS: No Genitourinary History of Genitourinary Disor: Yes (PT DENIES MEDICAL PROBLEMS, BUT PER OLD CHART) Genitourinary Disorders: Kidney Stones Gastrointestinal History of Gastrointestinal Di: Yes (DENIES MEDICAL PROBLEMS, BUT PER OLD CHART) Gastrointestinal Disorders: Irritable Bowel Musculoskeletal History of Musculoskeletal Dis: Yes (DENIES MEDICAL PROBLEMS, BUT PER OLD CHART) Musculoskeletal Disorders: Gout Endocrine History of Endocrine Disorders: Yes (OBESITY) HEENT History of HEENT Disorders: No Loss of Vision: Bilateral Hearing Impairment: Denies Cancer History of Cancer: No Psychosocial History of Psychiatric Problem: No Integumentary History of Skin or Integumenta: No Blood Transfusions History of Blood Disorders: No Reviewed Nursing Assessment Reviewed/Agree w Nursing PMH: Yes Family Medical History Significant Family History: No Pertinent Family Hx Review of Systems-General Constitutional: No chills, No diaphoresis EENTM: No blurred vision, No double vision Respiratory: No cough, No dyspnea on exertion Cardiovascular: No chest pain Gastrointestinal: abdominal pain (RUQ), nausea, vomiting Genitourinary: No decreased output, No discharge Musculoskeletal: No back pain, No joint pain Skin: No change in color, No change in hair/nails Psychiatric/Neurological: Denies Anxiety, Denies Depressed, Denies Emotional Problems All Other Systems Reviewed Negative Unless Noted: Yes (Negative excepted noted.) Physical Exam-General Problems Physical Exam Vital Signs Vital Signs - First Documented 07/14/21 19:04 Temp 36.3 Pulse 93 Resp 18 B/P (MAP) 187/119 (141) Capillary Refill : General Appearance: no apparent distress, obese HEENT: PERRL/EOMI, normal ENT inspection Neck: non-tender, supple Respiratory: chest non-tender, no respiratory distress, no accessory muscle use Cardiovascular: regular rate, rhythm, no JVD Gastrointestinal: soft, tenderness (epigastric ruq) Back: no CVA tenderness, no vertebral tenderness Extremities: normal range of motion, non-tender Neurologic/Psychiatric: typewriter mechanic II-XII nml as tested, alert, normal mood/affect, oriented x 3 Skin: normal color, warm/dry Lymphatic: no adenopathy Data Review Labs Laboratory Tests 07/14/21 19:15: White Blood Count 7.5, Red Blood Count 5.23, Hemoglobin 15.8, Hematocrit 45, Mean Corpuscular Volume 85, Mean Corpuscular Hemoglobin 30, Mean Corpuscular Hemoglobin Concent 36, Red Cell Distribution Width 13.2, Platelet Count 152, Mean Platelet Volume 8.9L, Immature Granulocyte % (Auto) 0, Neutrophils (%) (Auto) 48, Lymphocytes (%) (Auto) 38, Monocytes (%) (Auto) 9, Eosinophils (%) (Auto) 5, Basophils (%) (Auto) 1, Neutrophils # (Auto) 3.6, Lymphocytes # (Auto) 2.8, Monocytes # (Auto) 0.6, Eosinophils # (Auto) 0.4H, Basophils # (Auto) 0.1, Immature Granulocyte # (Auto) 0.0, Sodium Level 137, Potassium Level 3.7, Chloride Level 100, Carbon Dioxide Level 22, Anion Gap 15H, Blood Urea Nitrogen 8, Creatinine 0.69, Estimat Glomerular Filtration Rate 109, BUN/Creatinine Ratio 12, Glucose Level 154H, Calcium Level 9.1, Corrected Calcium 9.0, Magnesium Level 1.8, Total Bilirubin 0.9, Aspartate Amino Transf (AST/SGOT) 55H, Alanine Aminotransferase (ALT/SGPT) 61H, Alkaline Phosphatase 54, Total Protein 7.5, Albumin 4.1, Amylase Level 25, Lipase 19 07/14/21 19:28: Urine Color YELLOW, Urine Clarity CLEAR, Urine pH 6.5, Urine Specific [place] 1.020, Urine Protein NEGATIVE, Urine Glucose (UA) NEGATIVE, Urine Ketones TRACEH , Urine Nitrite NEGATIVE, Urine Bilirubin NEGATIVE, Urine Urobilinogen 0.2, Urine Leukocyte Esterase NEGATIVE, Urine RBC (Auto) NEGATIVE, Urine RBC 0-2, Urine WBC 0-2, Urine Squamous Epithelial Cells RARE, Urine Crystals NONE, Urine Bacteria TRACE, Urine Casts NONE, Urine Mucus SMALLH, Urine Culture Indicated NO Assessment/Plan Assessment/Plan Assessment/Plan n/v esophageal obstruction, mass vs food bolus hiatal hernia by ct epigastric/ruq abdominal pain NPO Discussed risks and benefits of egd and all other indicated procedures understands and wishes to proceed to evaluate for obstruction of esophagus would work up gallbladder as outpatient with some of his symptoms this may be causing some discomfort. Patient and family agree with plan HUDSON SNYDER DO July 14, 2021 21:52
--- NOTE | 2021-07-14 22:27 | Discharge Inst-Simple/Standard ---
Discharge Inst-Standard Discharge Medications New, Converted or Re-Newed RX: Transmitted to Pharmacy Patient Instructions/Follow Up Plan of Care/Instructions/FU: 2 weeks [place] Activity as Tolerated: Yes Discharge Diet: Liquid Diet (3 days and then advance to foods easy to swallow, no solid meats like steak or chicken.) HUDSON SNYDER DO July 14, 2021 22:27
[2021-07-14 22:30] VITALS: BP 174/109
--- NOTE | 2021-07-14 22:37 | Anesthesia-General Post-Op ---
General Patient Condition Mental Status/LOC: Same as Preop Cardiovascular: Satisfactory Nausea/Vomiting: Absent Respiratory: Satisfactory Pain: Controlled Complications: Absent Post Op Complications Complications None Follow Up Care/Instructions Patient Instructions None needed. Anesthesia/Patient Condition Patient Condition Patient is doing well, no complaints, stable vital signs, no apparent adverse anesthesia problems. No complications reported per nursing. DEBBIE PADRON CRNA July 14, 2021 22:37
[2021-07-14 22:40] VITALS: BP 161/108
[2021-07-14 22:51] VITALS: BP 151/96
[2021-07-14 23:00] VITALS: BP 153/100
[2021-07-14 23:10] VITALS: BP 153/101
[2021-07-14 23:21] VITALS: BP 144/98
[2021-07-15 00:02] VITALS: BP 154/98
--- NOTE | 2021-07-15 06:35 | OPERATIVE REPORT ---
DATE OF SERVICE: 07/14/2021 PREOPERATIVE DIAGNOSES: Nausea, vomiting, esophageal obstruction, mass versus food bolus. POSTOPERATIVE DIAGNOSES: Food bolus causing esophageal obstruction, small hiatal hernia. PROCEDURE: EGD with removal of food bolus and cold biopsy of the GE junction. SURGEON: Hudson Potts DO ANESTHESIA: General. ESTIMATED BLOOD LOSS: Scant. COMPLICATIONS: None. INDICATIONS: The patient is a 55-year-old male, who has been having difficulty swallowing for about a year. He felt like he had something stuck today and it would not go down. He has been having spit up secretions. He understands risks and benefits of procedure and wishes to proceed. Consent was signed in the chart. DESCRIPTION OF PROCEDURE: The patient was taken to the operating suite. He was intubated for airway protection. A timeout was performed. Scope was inserted in mouth, down the esophagus, which began seeing fluid and debris within the esophagus, which then encountered food bolus in the distal esophagus that was stuck. A gentle maneuver was able to use to push this through the GE junction. Relieving the obstruction. There were still a lot of food particles in the esophagus. Scope was then slowly continued to be advanced through the stomach and into the duodenum without difficulty. There were no polyps, masses or ulcerations within the duodenum. Scope was slowly retracted back into the stomach where it was further insufflated. Scope was retroflexed noting a small hiatal hernia, no other pathology. Scope was returned to its normal position, slowly withdrawn to distal esophagus again noting some inflammation around the GE junction and slight thickening appearance. Biopsies were obtained. There are still some food particles, which was able to be suctioned and removed. Scope was slowly retracted back until completely removed, noting no other pathology. The patient tolerated procedure well without complications and taken to recovery room in stable condition. RECOMMENDATIONS: The patient was started on Protonix 40 mg daily. He also reports some epigastric and right upper quadrant abdominal pain, which we will work up his gallbladder on an outpatient basis. The patient will stay on clear liquid diet for 3 days and then slowly advance foods easy to swallow, avoiding solid foods as steak and chicken. The patient will likely benefit from elective dilatation. Job ID: [id number] DocumentID: [id number] Dictated Date: 07/14/2021 22:32:52 Em Physician Date: 07/15/2021 05:10:51 Dictated By: HUDSON POTTS DO [facility]
== END | disposition home or self-care (01) ==
LOC: EDUNIT# 18:58 → ER 19:00 → SDC 21:17
PROVIDERS: ATTEND Surgery
DX: T18.128A Food in esophagus causing other injury, initial encounter (principal); K20.90 Esophagitis, unspecified without bleeding; K22.2 Esophageal obstruction; K44.9 Diaphragmatic hernia without obstruction or gangrene; I10 Essential (primary) hypertension; E66.01 Morbid (severe) obesity due to excess calories; F17.210 Nicotine dependence, cigarettes, uncomplicated
CPT/HCPCS: 36415; 70491; 71045; 71260; 74176; 80053; 81000; 82150; 83690; 83735; 85025; 93041; 96360